=== PATIENT | female | born 1985 | race Caucasian/White ===

== ENCOUNTER 2017-09-21 00:50 | Emergency (ER) | payer BC, SELFPAY ==
[2017-09-21 00:52] VITALS: BP 144/87; PULSE 101; RESP 17; TEMP 36.5; O2SAT 99; BMI 19.5
--- NOTE | 2017-09-21 01:07 | ED.VISSUMM ---
- ER Visit Summary Date of Service: 09/21/17 Chief Complaint: [] Vaginal bleeding and History of Present Illness: The patient is a 31 F [] patient stated she had passed 2 clots today. There were an inch thick. She is 13 weeks . Other bleeding except for very mild spotting yesterday. No vaginal discharge or pain. She has had 2 spontaneous abortions in the past and one delivery. She had a normal ultrasound 4 days ago. Prior to this ultrasound 4 days ago she had a clot that they were watching that seemed to have resolved. She is O+ blood type. Physical Examination: [] Vital signs reviewed General: Well-nourished well-developed Head: Normocephalic atraumatic Eyes: Pupils equal round and reactive to light extraocular movements intact ENT: TMs clear no hemotympanum no trauma Neck: Nontender full range of motion Cardiovascular: Regular rate rhythm no murmurs normal S1-S2 Respiratory: No distress clear to auscultation bilaterally chest nontender Abdomen: Soft nontender nondistended normal bowel sounds no masses Pelvic exam shows no vaginal discharge or blood in the vault. No active bleeding. Normal cervix Back: Nontender no CVA tenderness Extremities: Nontender active range of motion ?4 extremities no trauma Skin: Normal color no trauma Neuro alert oriented cranial nerves II through XII intact normal strength sensation reflexes Test Results: [] Emergency Department Course and Treatment: [] Ultrasound shows single live intrauterine at 13 weeks 2 days. There is an echogenic substance near the office which has been identified previously corresponding to a known hematoma region. It measures 16 mm in its greatest dimension. Heart rate is 141. There is a low-lying placenta that the patient knew about. She is going to have a in this and her [employer] is monitoring. CBC is normal. Quant is 113,000. Patient remained stable here. I feel she can be discharged. She will follow-up with her OB. Treatment Plan: [] Disposition: [] Impression: [] Intrauterine Intrauterine hematoma with vaginal bleeding - resolved This note was generated with [employer] software. It may contain incorrect words, spelling, and punctuation that were not noted in review of the chart prior to signing ED Disposition - Plan for ED Patient: Chief Complaint: Vag Bld, Preg Referrals: Joseph White MD [Primary Care Provider] -
[2017-09-21 01:29] LABS: Absolute Lymphocyte Count 2.42 X10^3/ul (0.83-4.51); Absolute Neutrophil Count 4.2 X10^3/uL (2.0-7.7); Basophil# 0.02 X10^3/uL; Basophil% 0.3 % (0-1); Eosinophil# 0.04 X10^3/uL; Eosinophils% 0.6 % (0-5); Hematocrit 39.9 % (37-47); Hemoglobin 13.6 g/dl (12.0-15.0); Lymphocyte # 2.42 X10^3/ul (4.0); Lymphocyte % 33.5 % (19-41); Mean Corp Hgb Conc 34.1 g/gl (32-36); Mean Corpuscular Hgb 29.8 pg (27.0-32.0); Mean Corpuscular Volume 87.5 fL (81-99); Mean Platelet Vol. 9.2 fl (6.2-12.0); Monocyte# 0.56 X10^3/uL; Monocyte% 7.8 % (0-10); Neutrophil # 4.17 X10^3/uL (2.7-7.7); Neutrophil % 57.7 % (47-70); Platelet Count 191 K/mm3 (150-450); RBC Distribution Width CV 12.4 % (11.6-14.6); RBC Distribution Width SD 39.7 fl (35.1-43.9); Red Blood Count 4.56 M/mm3 (4.2-5.4); White Blood Count 7.2 K/mm3 (4.4-11.0)
[2017-09-21 01:30] LABS: POSITIVE COUNT NO; POSITIVE DIFFERENTIAL NO; POSITIVE MORPHOLOGY NO
--- NOTE | 2017-09-21 02:10 | US_ITS ---
STUDY: FIRST TRIMESTER OBSTETRICAL ULTRASOUND REASON FOR EXAM: Female, 31 years old. Abnormal vaginal bleeding in a patient. Patient reportedly had a previous ultrasound done on September 18, 2017 showing an endocervical hematoma. LMP: June 19, 2017 TECHNIQUE: Transvaginal PRIOR ULTRASOUND: Prior comparison studies are not available for review at this time. FINDINGS: There is visualization of a single gestational sac in a normal intrauterine position. The mean sac diameter (MSD) measures 6.2 cm. The gestational sac shape is within normal limits. There is no demonstrated yolk sac. There is visualization of the placenta. The placenta appears to be posterior and there appears to be partial previa versus low-lying placenta.. There is visualization of a live fetus. The crown-rump length (CRL) measures 7.0 cm, indicating an estimated gestational age (EGA) of 13 weeks, 2 days. There is demonstrated cardiac activity with a heart rate of 141 bpm. The estimated gestation age (EGA) by LMP is 13 weeks, 3 days. The estimated date of delivery (MISHEL) by LMP is March 26, 2018. The estimated gestation age (EGA) by US is 13 weeks, 2 days. The estimated date of delivery (MISHEL) by US is March 27, 2018. The uterus measures 11.1 x 8.1 x 10.8 cm. There is no demonstrated uterine fibroid. The cervix is closed. There appears to be a echogenic substance near the internal os of the cervix corresponding to known hematoma. This measures approximately 16.3 x 9.9 x 3.7 mm. The ovaries are not visualized. There is no visualized right adnexal mass or complex lesion. There is no visualized left adnexal mass or complex lesion. There is no fluid in the cul de sac. US/Transvaginal w/Preg US IMPRESSION: 1. Single living intrauterine gestation with estimated gestational age by size of 13 weeks 2 days. 2. Persistent hypoechoic substance near the internal os of cervix apparently previously identified on OB ultrasound. This presumably represents a small amount of hemorrhage. 3. Possible low-lying placenta versus partial placenta previa. Electronically Signed: Mariia Borden MD at 3:13 EST , Service support ,
--- NOTE | 2017-09-21 03:27 | ED.DEP ---
ED Disposition - Plan for ED Patient: Disposition: Home or Assisted Living Chief Complaint: Vag Bld, Preg Instructions: ED Miscarriage Poss Referrals: Joseph White MD [Primary Care Provider] - Clifton Bland MD [STAFF PHYSICIAN] -
[2017-09-21 03:34] VITALS: BP 109/77; PULSE 87; RESP 16; O2SAT 99
== END 2017-09-21 03:35 | disposition home or self-care (01) ==
PROVIDERS: Emergency Provider Emergency Medicine; Family Provider Family Medicine; PCP Family Medicine
DX: O20.8 Other hemorrhage in early pregnancy (principal); O44.41 Low lying placenta NOS or without hemorrhage, first trimester; Z3A.13 13 weeks gestation of pregnancy
CPT/HCPCS: 76817; 84702; 85025; 99283; A4216

== ENCOUNTER → 2017-12-31 08:57 | Outpatient (CLI) | payer BC, SELFPAY ==
[2017-12-31 10:37] LABS: Hematocrit 37.8 % (37-47); Hemoglobin 12.5 g/dl (12.0-15.0); Mean Corp Hgb Conc 33.1 g/gl (32-36); Mean Corpuscular Hgb 29.8 pg (27.0-32.0); Mean Platelet Vol. 9.4 fl (6.2-12.0); Platelet Count 177 K/mm3 (150-450); RBC Distribution Width CV 12.7 % (11.6-14.6); RBC Distribution Width SD 41.5 fl (35.1-43.9)
[2017-12-31 10:44] LABS: Scan Indicated on CBC? Y/N NO
[2017-12-31 10:48] LABS: Glucose Challenge Gest 1H 50g 130 mg/dL (70-140)
== END ==
PROVIDERS: Visit Provider Obstetrics & Gynecology
DX: Z34.82 Encounter for supervision of other normal pregnancy, second trimester (principal)
CPT/HCPCS: 36415; 82950; 85027

== ENCOUNTER 2018-02-23 20:30 | Outpatient (CLI) | payer BC, SELFPAY ==
[2018-02-23 21:05] LABS: Mucous, Urine 0 SEEN /hpf (<or=2+); Red Blood Cells-Urine 0 SEEN /hpf (0-5); White Blood Cells 0 SEEN /hpf (0-5)
[2018-02-23 21:06] LABS: Color, Urine Yellow (Yellow); Glucose, Dipstick Normal (Normal); Ketone-Dipstick 15 mg/dl (Negative); Leukocyte Esterase-Dipstick 25 /ul (Negative); Nitrite-Dipstick Negative (Negative); Occult Blood-Urine Negative /ul (Negative); Protein-Dipstick Negative (Negative); Urine Bilirubin Dipstick Negative (Negative); Urine Clarity Clear (Clear); Urine Urobilinogen Normal (Normal); Urine pH 6.5 (5.0 - 8.0)
[2018-02-23 21:10] VITALS: BMI 24.6
[2018-02-23 21:17] LABS: Bacteria RARE /hpf (None Seen); Squamous Epithelial Cells - UA 0-5 SEEN /hpf (5-10)
[2018-02-23 22:10] VITALS: RESP 18
--- NOTE | 2018-02-24 08:09 | OB.TRI.HP_ITS ---
History of Present Illness Reason For Visit: R/O LABOR Date of Service: 02/23/18 Final MISHEL: 03/26/18 Final MISHEL Source: US <20 weeks Gestational age: 35 Weeks and 4 Days History of Present Illness: 35+ week intrauterine presents with occasional contraction every 5-7 minutes. Palpate mild. Allergies iodine Allergy (Verified 02/23/18 21:08) Rash Physical Exam Vitals: Vital Signs Resp 18 02/23/18 22:10 NST - FHR Rate Baby A NST Reactive:: Yes FHR Category:: Category I Impression/Plan 35+ week intrauterine with transient contractions. Decreased in intensity and frequency after monitoring. Cervix nonthreatening. Reactive nonstress test. Urinalysis negative. Will release to home with routine follow- up.
== END 2018-02-23 22:10 | disposition home or self-care (01) ==
LOC: WPOUT 20:40 → WP 20:40
PROVIDERS: Family Provider Family Medicine; PCP Family Medicine; Visit Provider Obstetrics & Gynecology
DX: O60.03 Preterm labor without delivery, third trimester (principal); Z3A.35 35 weeks gestation of pregnancy
CPT/HCPCS: 59025; 59050; 81001; 99218; G0378

== ENCOUNTER → 2018-02-26 16:22 | Outpatient (CLI) | payer BC, SELFPAY ==
[2018-02-26 18:24] LABS: Group B Strep DNA By PCR Negative (Negative); Internal Control PASS; Probe Check PASS; Specimen Processing Control PASS
== END ==
PROVIDERS: Visit Provider Obstetrics & Gynecology
DX: Z36.85 Encounter for antenatal screening for Streptococcus B (principal)
CPT/HCPCS: 87081; 87653

== ENCOUNTER 2018-03-09 05:25 | Inpatient (IN) | payer BC, SELFPAY ==
[2018-03-09] VITALS (17 sets, daily range): BP systolic 102–119; BP diastolic 53–81; PULSE 91–111; RESP 14–20; TEMP 36.1–36.4; O2SAT 98–100; BMI 24.9
[2018-03-09 05:13] LABS: ROM Internal Control Test YES-OK TO RESULT pt. (Internal QC); ROM Patient Test POSITIVE (Negative)
[2018-03-09] MEDS: Lactated Ringers 1,000 ML 999 ML IV (05:55)
[2018-03-09 06:28] LABS: Basophil# 0.02 X10^3/uL; Basophil% 0.2 % (0-1); Eosinophil# 0.05 X10^3/uL; Eosinophils% 0.5 % (0-5); Hematocrit 39.1 % (37-47); Lymphocyte % 21.5 % (19-41); Mean Corp Hgb Conc 33.2 g/gl (32-36); Mean Corpuscular Hgb 29.3 pg (27.0-32.0); Mean Corpuscular Volume 88.1 fL (81-99); Mean Platelet Vol. 9.3 fl (6.2-12.0); Monocyte# 0.99 X10^3/uL; Monocyte% 9.7 % (0-10); Neutrophil # 6.97 X10^3/uL (2.7-7.7); Neutrophil % 67.9 % (47-70); Platelet Count 192 K/mm3 (150-450); RBC Distribution Width CV 12.8 % (11.6-14.6); RBC Distribution Width SD 41.2 fl (35.1-43.9); Red Blood Count 4.44 M/mm3 (4.2-5.4); White Blood Count 10.3 K/mm3 (4.4-11.0)
[2018-03-09 06:35] LABS: POSITIVE COUNT NO; POSITIVE DIFFERENTIAL NO; POSITIVE MORPHOLOGY NO
[2018-03-09] MEDS: Sodium Citrate/Citric Acid 30 ML UDC PO (09:10)
[2018-03-09] MEDS: Lactated Ringers 1,000 ML 100 ML IV ×3 (09:15→21:34)
[2018-03-09] MEDS: Oxytocin 30 units/NS 500 ml 30 UNITS/500 ML IV.SOLN 167 UNITS IV (09:32)
--- NOTE | 2018-03-09 10:23 | PCM.OP.BLANK ---
Operative Report Date of Procedure: 03/09/18 Surgeon: Clifton Bland MD, FACOG Manager Of Sales: JASMINE Landon Anesthesia: Martha Vargas MD Anesthesia: Spinal with Duramorph Pre-op Diagnosis: - -Prior Section Post-Op Diagnosis: - -Prior Section Procedure: Repeat Low Transverse Cervical Caesarean Section Findings: Viable male with Apgars of 9/9 in occiput anterior presentation with clear amniotic fluid and normal three-vessel placenta. Indication: This is a 32-year-old who presents for her second at 37 weeks 5 days weeks gestation with spontaneous rupture of memebranes at home. care has been eventful for a prior demise of her infant from SIDs at 9 weeks of age. The patient has been counseled regarding the risk and indications of this procedure including the possibility of bleeding infection and injury to surrounding structures such as bowel bladder. All questions were answered. Procedure: Patient was taken to the operating room where after spinal anesthesia was placed, the patient was prepped and draped in usual sterile fashion and a Hernandez catheter was placed. The abdomen was entered through the patient's prior Pfannenstiel incision, keloid scar was removed, and peritoneum was entered bluntly. After developing a bladder flap on the lower uterine segment a low transverse incision was made on the uterus and head was easily delivered onto the operative field the nose mouth and oropharynx were bulb suctioned. Subsequently a viable male was born with Apgars of 9/9. The was noted to cry move all extremities vigorously on the operative field. The umbilical cord was doubly clamped and ligated and handed to the nursery personnel who were present for the delivery. Placenta was delivered and noted to be 3 vessels and normal. Uterus was exteriorized and remaining placental tissue was removed. The uterus was then closed in 2 layers first with running locked 0 Vicryl suture followed by a second imbricating layer with 0 Vicryl suture. 0 Vicryl suture was then used in a horizontal mattress interrupted fashion to affect final hemostasis of the uterine incision line. Normal fallopian tubes and ovaries were visualized and the uterus was returned to the pelvis. Hemostasis was noted and rectus abdominis muscles were reapproximated in the midline with interrupted Number 0 Vicryl suture in a horizontal mattress fashion. Fascia was closed with running Number 1 PDS Strata fix suture. Subcutaneous tissue was irrigated with copious amouts of saline solution and then closed with running 3-0 Vicryl suture. Skin was closed with 4-0 monocryl suture in a running subcuticular fashion. Steri strips, telfa, and tape were placed across the incision. The patient tolerated the procedure well and was taken to the recovery room in satisfactory condition. Sponge, needle, and instrument counts were all reportedly correct. EBL was <500 cc. Ancef 2 gms IV was given prior to the procedure. Spicemen to Pathology: None Complications: None
--- NOTE | 2018-03-09 10:36 | DCINST_ITS ---
Discharge Diet: No Restrictions Discharge Activity: May not drive while taking narcotic pain medications., May Shower, May Take a Tub Bath May resume sexual activity in: 4-6 weeks Lifting Restrictions: 20 pounds Additional Activity Instructions:: Nothing in the vagina for 4-6 weeks. You may return to work/school in 6 weeks. Call your doctor if your incision/area has: Continuous Slow Oozing, Sudden Increased Bleeding, Increased Pain/ Swelling, Increased Redness, Foul Smelling Discharge Call your doctor if you observe: Fever of 101 or Higher, Inability to urinate, Inability to have a bowel movement, Using more than one pad per hour Additional Instructions: If you experience any of the following, contact your healthcare provider. * Bleeding that soaks a pad every hour for 2 hours * Unrelieved incision or abdominal pain * Swelling, redness, discharge or bleeding from your incision or episiotomy site * Your incision begins to separate * Problems urinating (including inability to urinate or burning while urinating) . * Visual changes * Severe headache * Flu-like symptoms * Pain or redness in one of both of your breasts * Pain, warmth, tenderness or swelling in your legs, especially the calf area * Frequent nausea and vomiting * Symptoms of depression or anxiety If you experience any of the following, call 911 or go to the nearest Emergency Room. * Chest pain * Problems breathing * Seizure activity * Partial or complete paralysis of a body part, slurred speech, weakness or drooping of the face, or a sudden inability to walk or hold your balance Allergies/Adverse Reactions: Allergies iodine Allergy (Verified 03/09/18 04:49) Rash Medications to take at Discharge Pnv with Ca,No.72/Iron/FA [ Plus Tablet] 1 tab PO DAILY 06/14/15 Docusate Sodium [Colace] 100 mg PO BID PRN PRN #60 cap 03/09/18 Oxycodone [Oxyir] 5 mg PO Q6H PRN PRN 7 Days #20 tab 03/09/18 The following prescriptions were given: Oxycodone [Oxyir] 5 mg PO Q6H PRN PRN 7 Days #20 tab PRN Reason: Mod-Severe Pain (-06/10) Docusate Sodium [Colace] 100 mg PO BID PRN PRN #60 cap PRN Reason: Constipation Follow-Up: Call to make an appointment with your doctor for an incision check in 1-2 weeks. You will also need a 6 week post- follow up appointment. Test results from this visit will be discussed in further detail at your follow- up appointment, if applicable. Please Follow Up With: Clifton Bland MD - [phone] When: Call to make an appointment for an incision check in 2 weeks. Primary Care Physician: Joseph White MD [Primary Care Provider] -
--- NOTE | 2018-03-09 13:01 | NURSING ---
pt had 200 cc emesis. BP 126/78. Room temp decreased, ice given to place on pts neck. encouraged ice chips vs drinking fluids. Pt refuses any further nausea med at this time.
[2018-03-09] MEDS: proMETHazine 25 MG/ML Syringe 12.5 MG IV (13:44)
[2018-03-09] MEDS: Ketorolac 30 MG/ML Syringe IV ×2 (15:42→21:33)
[2018-03-09] MEDS: Cefazolin 1 GM/50 ML BAG IV (17:18)
[2018-03-10] VITALS (8 sets, daily range): BP systolic 95–126; BP diastolic 58–85; PULSE 88–107; RESP 16–18; TEMP 36.4–36.7; O2SAT 97–100
[2018-03-10] MEDS: Cefazolin 1 GM/50 ML BAG IV (00:55)
[2018-03-10] MEDS: Ketorolac 30 MG/ML Syringe IV ×3 (03:39→14:59)
[2018-03-10 06:14] LABS: Hematocrit 31.5 % (37-47); Hemoglobin 10.4 g/dl (12.0-15.0); Mean Corpuscular Hgb 29.9 pg (27.0-32.0); Mean Corpuscular Volume 90.5 fL (81-99); Platelet Count 164 K/mm3 (150-450); RBC Distribution Width CV 12.8 % (11.6-14.6); RBC Distribution Width SD 41.4 fl (35.1-43.9); Red Blood Count 3.48 M/mm3 (4.2-5.4); White Blood Count 11.4 K/mm3 (4.4-11.0)
[2018-03-10 06:24] LABS: Scan Indicated on CBC? Y/N NO
--- NOTE | 2018-03-10 07:49 | PCM.PN.OB ---
Subjective: Patient without complaints. Tolerating diet well. Positive flatus. - Physical Exam Vital Signs AF, VSS Temp Pulse Resp BP Pulse Ox 98.1 F 98 18 96/59 L 97 03/10/18 03:45 03/10/18 05:55 03/10/18 05:55 03/10/18 03:45 03/10/18 05:55 Oxygen Delivery Method Room Air Weight: 140 lb 10.479 oz Body Mass Index (BMI) 24.9 Intake and Output for Last 24 Hours 03/08/18 03/09/18 03/10/18 23:59 23:59 23:59 Intake Total 5094 / 5094 1514 / 1514 Output Total 2400 / 2400 1400 / 1400 Balance 2694 / 2694 114 / 114 Laboratory Tests Past 24 Hrs 03/10/18 05:00 WBC 11.4 H RBC 3.48 L Hgb 10.4 L Hct 31.5 L MCV 90.5 MCH 29.9 MCHC 33.0 RDW 12.8 RDW Differential 41.4 Plt Count 164 MPV 9.0 Wound is clean, dry, intact. Good urine output. Hemoglobin okay. Medical Necessity - Tobacco Use Smoking Status: Never smoker Assessment/Plan All Active Problems distress affecting delivery (Acute) Doing well. Continuing present care.
[2018-03-10] MEDS: 0.9% Saline Lock 10 ML Syringe IV ×2 (08:26→15:00)
--- NOTE | 2018-03-10 18:16 | NURSING ---
Patient is currently pain free. Since IV came out, I educated and discussed different pain medication options available to her. Also discussed using a binder when she is up and walking and using a kpad if needed. Patient denies need for pain intervention at this time. will continue to monitor
[2018-03-10] MEDS: Ibuprofen 600 MG Tablet PO (21:14)
[2018-03-11 01:15] VITALS: BP 113/72; PULSE 91; RESP 18; TEMP 36.6; O2SAT 97
[2018-03-11] MEDS: Ibuprofen 600 MG Tablet PO (03:17)
[2018-03-11 08:30] VITALS: BP 100/70; PULSE 95; RESP 20; TEMP 36.3; O2SAT 97
[2018-03-11] MEDS: Senna/Docusate Sodium 1 Tablet PO (08:30)
--- NOTE | 2018-03-11 09:44 | PCM.PN.OB ---
Subjective: Postoperative day #2 repeat . Patient without complaints. Tolerating diet well. Ready to go home. - Physical Exam Vital Signs Temp Pulse Resp BP Pulse Ox 97.3 F L 95 20 H 100/70 97 03/11/18 08:30 03/11/18 08:30 03/11/18 08:30 03/11/18 08:30 03/11/18 08:30 Oxygen Delivery Method Room Air Weight: 140 lb 10.479 oz Body Mass Index (BMI) 24.9 Intake and Output for Last 24 Hours 03/09/18 03/10/18 03/11/18 23:59 23:59 23:59 Intake Total 5094 / 5094 2053 / 2053 Output Total 2400 / 2400 3000 / 3000 Balance 2694 / 2694 -947 / -947 Wound is clean, dry, intact. Good urine output. Medical Necessity - Tobacco Use Smoking Status: Never smoker Assessment/Plan All Active Problems distress affecting delivery (Acute) Postoperative day #2 repeat . Doing well. Will release to home with routine instructions.
== END 2018-03-11 12:10 | disposition home or self-care (01) | DRG 766 ==
LOC: WPOUT 05:25
PROVIDERS: Obstetrics & Gynecology; Admitting Provider Obstetrics & Gynecology; Family Provider Family Medicine; PCP Family Medicine; Visit Provider Obstetrics & Gynecology
DX: O34.211 Maternal care for low transverse scar from previous cesarean delivery (principal); Z37.0 Single live birth; Z3A.37 37 weeks gestation of pregnancy; L91.0 Hypertrophic scar; O77.9 Labor and delivery complicated by fetal stress, unspecified
CPT/HCPCS: 59025; 59050; 84112; 85025; 85027; 86850; 86900; 99218; J7120; A4216; G0378; J2405

== ENCOUNTER → 2019-03-10 | Outpatient (CLI) | payer BC, SELFPAY ==
[2018-03-09 04:47] VITALS: BMI 24.9
[2019-03-10 20:14] LABS: Chlamydia Trachomatis by PCR Negative (Negative); Neisserai gonorrhoeae by PCR Negative (Negative); Probe Check PASS; Sample Adequacy Control PASS; Specimen Processing Control PASS
[2019-03-19 11:41] LABS: HPV APTIMA, High Risk Negative (Negative)
[2019-03-19 12:42] LABS: HPV Reflexed? YES, CHARGE PATIENT
== END | disposition home or self-care (01) ==
LOC: LABSPEC 16:13
PROVIDERS: Family Provider Family Medicine; PCP Family Medicine; Referring Provider Obstetrics & Gynecology; Visit Provider Obstetrics & Gynecology
DX: Z12.4 Encounter for screening for malignant neoplasm of cervix (principal); Z11.3 Encounter for screening for infections with a predominantly sexual mode of transmission
CPT/HCPCS: 87491; 87591; 87624; 88175; G0145

== ENCOUNTER → 2019-04-21 | Outpatient (CLI) | payer BC, SELFPAY ==
[2018-03-09 04:47] VITALS: BMI 24.9
[2019-04-21 17:17] LABS: Color, Urine Straw (Yellow); Glucose, Dipstick Normal (Normal); Ketone-Dipstick Negative (Negative); Leukocyte Esterase-Dipstick 100 /ul (Negative); Nitrite-Dipstick Negative (Negative); Occult Blood-Urine Negative /ul (Negative); Protein-Dipstick Negative (Negative); Specific Gravity, Urine 1.005 (1.002-1.030); Urine Bilirubin Dipstick Negative (Negative); Urine Clarity Clear (Clear); Urine Urobilinogen Normal (Normal)
[2019-04-21 17:21] LABS: Absolute Lymphocyte Count 1.83 X10^3/uL (0.83-4.51); Absolute Neutrophil Count 7.2 X10^3/uL (2.0-7.7); Basophil# 0.03 X10^3/uL; Basophil% 0.3 % (0-1); Eosinophil# 0.03 X10^3/uL; Eosinophils% 0.3 % (0-5); Hematocrit 41.3 % (37-47); Hemoglobin 13.6 g/dL (12.0-15.0); Lymphocyte # 1.83 X10^3/ul (4.0); Lymphocyte % 19.1 % (19-41); Mean Corp Hgb Conc 32.9 g/dL (32-36); Mean Corpuscular Hgb 29.4 pg (27.0-32.0); Mean Corpuscular Volume 89.4 fL (81-99); Mean Platelet Vol. 9.4 fl (6.2-12.0); Monocyte# 0.52 X10^3/uL; Monocyte% 5.4 % (0-10); NRBC Flagged by Analyzer 0 % (0-5); Neutrophil # 7.16 X10^3/uL (2.7-7.7); Neutrophil % 74.7 % (47-70); Platelet Count 233 K/mm3 (150-450); RBC Distribution Width CV 12.3 % (11.6-14.6); RBC Distribution Width SD 39.8 fl (35.1-43.9); Red Blood Count 4.62 M/mm3 (4.2-5.4); White Blood Count 9.6 K/mm3 (4.4-11.0)
[2019-04-21 17:43] LABS: Thyroid Stim Hormone (TSH) 0.24 uIU/mL (0.358-3.74)
[2019-04-22 10:57] LABS: HIV - WCH Non-Reactive (Nonreactive); Hepatitis B Surface Antigen Non-Reactive (Nonreactive); Hepatitis C Antibody Non-Reactive (Nonreactive); Rubella IgG > 500.0 IU/mL
[2019-04-23 01:39] LABS: Prenatal RPR NONREACTIVE (NONREACTIVE)
[2019-04-28 10:36] LABS: PARVOVIRUS B19 IGG 6.9 index (0.0-0.8); PARVOVIRUS B19 IGM 0.4 index (0.0-0.8)
== END | disposition home or self-care (01) ==
LOC: WOBLAB 15:03
PROVIDERS: Visit Provider Obstetrics & Gynecology
DX: Z34.81 Encounter for supervision of other normal pregnancy, first trimester (principal)
CPT/HCPCS: 36415; 81002; 84443; 85025; 86703; 86747; 86762; 86803; 87340

== ENCOUNTER → 2019-06-08 17:25 | Outpatient (CLI) | payer BC, SELFPAY ==
[2018-03-09 04:47] VITALS: BMI 24.9
== END ==
PROVIDERS: Visit Provider Obstetrics & Gynecology
DX: R10.31 Right lower quadrant pain (principal)
CPT/HCPCS: 87086; 87088

== ENCOUNTER → 2019-08-05 09:51 | Outpatient (CLI) | payer BC, SELFPAY ==
[2018-03-09 04:47] VITALS: BMI 24.9
[2019-08-05 11:03] LABS: Hematocrit 38.8 % (37-47); Hemoglobin 12.9 g/dL (12.0-15.0); Mean Corp Hgb Conc 33.2 g/dL (32-36); Mean Corpuscular Hgb 30.4 pg (27.0-32.0); Mean Corpuscular Volume 91.3 fL (81-99); Mean Platelet Vol. 9.3 fl (6.2-12.0); Platelet Count 193 K/mm3 (150-450); RBC Distribution Width CV 12.4 % (11.6-14.6); Red Blood Count 4.25 M/mm3 (4.2-5.4); White Blood Count 9.3 K/mm3 (4.4-11.0)
[2019-08-05 11:13] LABS: Glucose Challenge Gest 1H 50g 108 mg/dL (70-140)
== END ==
PROVIDERS: Visit Provider Obstetrics & Gynecology
DX: Z34.83 Encounter for supervision of other normal pregnancy, third trimester (principal)
CPT/HCPCS: 36415; 82950; 85027

== ENCOUNTER 2019-10-02 04:30 | Outpatient (CLI) | payer BC, SELFPAY ==
[2019-10-02 05:15] VITALS: BMI 23.9
[2019-10-02] MEDS: Lactated Ringers 1,000 ML 999 ML IV (05:30)
[2019-10-02] MEDS: Betamethasone/Betamethasone 30 MG/5 ML Vial 12 MG IM (07:47)
--- NOTE | 2019-10-02 10:45 | OB.TRI.HP_ITS ---
- Problem List (1) 35 weeks gestation of Status: Acute History of Present Illness Date of Service: 10/02/19 Was patient seen by the physician?: Yes Reason For Visit: C/O Date of Service: 10/02/19 Final MISHEL: 10/31/19 Final MISHEL Source: US <20 weeks Gestational age: 35 Weeks and 6 Days Allergies iodine Allergy (Verified 10/02/19 05:57) Rash Review of Systems Constitutional: Denies: Chills, Fever, Weight Change HEENT: Denies: Head Aches, Sinus Congestion, Sinus Drainage Cardiovascular: Denies: Chest Pain, Palpitations Respiratory: Denies: Cough, Shortness of breath at rest, Sputum production Gastrointestinal: Reports: Abdominal Pain - Uterine contractions. Denies: Nausea, Vomiting Genitourinary: Denies: Dysuria Musculoskeletal: Denies: Joint Pain, Joint Tenderness Skin: Denies: Rash, Wounds Neurological: Denies: Numbness, Tingling, Focal weakness Psychiatric: Denies: Anxiety, Depression, Homicidal Ideations, Suicidal Ideations Hematologic/ Lymphatic: Denies: Easy Bruising, Easy Bleeding Physical Exam General: Alert, Oriented x3, No apparent distress HEENT: Atraumatic, Normocephalic. Negative for: Thyromegaly, Lymphadenopathy Cardiovascular: Regular rate, Regular Rhythm Lungs: Clear to auscultation Abdomen: Bowel Sounds Present, Gravid Neurological: Deep Tendon Reflexes 2+/4 and Symmetrical, Neuro grossly intact MEDICAL AND SCIENTIFIC ILLUSTRATOR: Normal external genitalia. Negative for: Vulvar lesions Estimated gestational size: Appropriate for gestational size Presentation: Cephalic Cervix Dilation (cm): 2 Station: -3 Effacement (%): 50 NST - FHR Rate Baby A Baseline: 140 Variability:: Moderate Accelerations:: 15 x 15 Decelerations:: None NST Reactive:: Yes FHR Category:: Category I Uterine Activity:: Q10-12 minutes Impression/Plan A: at 35.6 weeks gestation Uterine contractions on admission Q4 minutes. IV fluids received. Now Q10 minutes SVE 2/50/-3 medium/mid NST baseline 140, +accels, -decels, moderate variability, Category I P: Celestone received at 0800, second dose 10/03/19 at 0800 Discussed case with attending Dr. Bland Discharge home on bedrest. To increase fluids and monitor UC. If becoming more regular or stronger again to report back to [facility] or call CNM. Will follow up in office at routine visit Friday
== END 2019-10-02 10:15 | disposition home or self-care (01) ==
LOC: WPOUT 04:36 → OBT 04:37 → WP 08:04
PROVIDERS: Referring Provider Obstetrics & Gynecology; Visit Provider Obstetrics & Gynecology
DX: O62.9 Abnormality of forces of labor, unspecified (principal); Z3A.35 35 weeks gestation of pregnancy
CPT/HCPCS: 96360; 59025; 59050; 99218; J7120; G0378; J0702

== ENCOUNTER 2019-10-03 08:05 | Outpatient (CLI) | payer BC, SELFPAY ==
[2019-10-02 05:15] VITALS: BMI 23.9
[2019-10-03 08:17] VITALS: BMI 24.4
[2019-10-03] MEDS: Betamethasone/Betamethasone 30 MG/5 ML Vial 12 MG IM (08:28)
== END 2019-10-03 08:35 | disposition home or self-care (01) ==
LOC: WPOUT 08:11 → WP 08:11
PROVIDERS: Referring Provider Obstetrics & Gynecology; Visit Provider Obstetrics & Gynecology
DX: O62.9 Abnormality of forces of labor, unspecified (principal); Z3A.35 35 weeks gestation of pregnancy
CPT/HCPCS: 96372; 99218; G0378; J0702

== ENCOUNTER → 2019-10-04 | Outpatient (CLI) | payer BC, SELFPAY ==
[2019-10-03 08:17] VITALS: BMI 24.4
== END | disposition home or self-care (01) ==
PROVIDERS: Referring Provider Obstetrics & Gynecology; Visit Provider Obstetrics & Gynecology
DX: Z36.85 Encounter for antenatal screening for Streptococcus B (principal)
CPT/HCPCS: 87081

== ENCOUNTER 2019-10-05 07:05 | Inpatient (IN) | payer BC, SELFPAY ==
[2019-10-05] VITALS (22 sets, daily range): BP systolic 104–130; BP diastolic 59–87; PULSE 73–107; RESP 13–18; TEMP 36.2–37.1; O2SAT 97–100; BMI 24.0
[2019-10-05] MEDS: Lactated Ringers 1,000 ML 999 ML IV (07:45)
--- NOTE | 2019-10-05 08:05 | PCM.HP.OB ---
- Problem List (1) 36 weeks gestation of Status: Acute (2) Spontaneous rupture of amniotic membranes Status: Acute History Date of Admission: 09/02/16 Final MISHEL: 10/31/19 Final MISHEL Source: US <20 weeks Gestational age: 36 Weeks and 2 Days History of this : This is a 33 year-old, G [], P [], at weeks gestational age. Allergies iodine Allergy (Verified 10/02/19 05:57) Rash Home Medications: Home Medications Pnv,Calcium 72/Iron/Folic Acid [ Plus Tablet] 1 tab PO DAILY 06/14/15 Smoking Status: Never smoker Number of Fetus(es): 1 NST - FHR Rate Baby A Baseline: 140 Variability:: Moderate Accelerations:: 15 x 15 Decelerations:: Variable NST Reactive:: Yes FHR Category:: Category I Uterine Activity:: Q 5 minutes, lasting 2 minutes History Past Pregnancies: Past Pregnancies Delivery Date Name GA/ Weeks Outcome Route Wt Sex Labor Length Anesthesia Delivery Location Provider FOB Expected Delivery Method: Spontaneous Vaginal Number of Visits: 14 Review of Systems Constitutional: Denies: Chills, Fever, Weight Change HEENT: Reports: Nasal Congestion - Started on Z-pack yesterday. Denies: Head Aches, Sinus Congestion, Sinus Drainage Cardiovascular: Denies: Chest Pain, Palpitations Respiratory: Denies: Cough, Shortness of breath at rest, Sputum production Gastrointestinal: Denies: Abdominal Pain, Nausea, Vomiting Genitourinary: Denies: Dysuria Musculoskeletal: Denies: Joint Pain, Joint Tenderness Skin: Denies: Rash, Wounds Neurological: Denies: Numbness, Tingling, Focal weakness Psychiatric: Denies: Anxiety, Depression, Homicidal Ideations, Suicidal Ideations Hematologic/ Lymphatic: Denies: Easy Bruising, Easy Bleeding Physical Exam General: Alert, Oriented x3, No apparent distress HEENT: Atraumatic, Normocephalic. Negative for: Thyromegaly, Lymphadenopathy Cardiovascular: Regular rate, Regular Rhythm Lungs: Clear to auscultation Abdomen: Bowel Sounds Present, Gravid, - - Uterine contractions Neurological: Deep Tendon Reflexes 2+/4 and Symmetrical, Neuro grossly intact ABSORPTION OPERATOR: Normal external genitalia. Negative for: Vulvar lesions Estimated gestational size: Appropriate for gestational size Presentation: Cephalic Cervix Dilation (cm): 4 Station: -2 Effacement (%): 50 Assessment/Plan All Active Problems 35 weeks gestation of (Acute) 36 weeks gestation of (Acute) Spontaneous rupture of amniotic membranes (Acute) distress affecting delivery (Acute) A: This is a 33 year-old, G [5], P [1], at 36 weeks gestational age. Premature spontaneous rupture of membranes at 0620 at home, clear amniotic fluid Received two doses of Celestone on 10-02-19 and 10-03-19 for contractions Upper respiratory infection with Z-pack started yesterday SVE 4/50/-2 soft mid UC Q5 minutes with FHR baseline 140, +accels, one variable noted, moderate variability. Cateogry 1 tracing P: Called attending Dr. Bland for repeat third Ancef 2g to start per Dr. Bland's instruction Will prep for May stop Z-pack on admission Admit and expect repeat
--- NOTE | 2019-10-05 08:27 | OP.PCM_ITS ---
Delivery Classification: GEORGE Final MISHEL: 10/31/19 Final MISHEL Source: US <20 weeks Gestational age: 36 Weeks and 2 Days doctor who attended delivery (if requested by OB): Chago Lewis - 36 weeks gestation entry operator: Lul Esqueda Type of Anesthesia:: Spinal - With Duramorph Implants Used: None Date of Procedure: 10/05/19 Pre-Operative Diagnosis: Term Intrauterine with Premature Rupture of Membranes, Prior Section Post-Operative Diagnosis: Term Intrauterine with Premature Rupture of Membranes, Prior Section Description of Procedure: Surgeon: Clifton Bland MD, FACOG Anesthesia: Eben Rivas CRNA Anesthesia: Spinal with Duramorph Pre-op Diagnosis: - -Prior Section Post-Op Diagnosis: - -Prior Section Procedure: Repeat Low Transverse Cervical Caesarean Section Findings: Viable female with Apgars of 8/9 in occiput anterior presentation with clear amniotic fluid and normal three-vessel placenta. Cord was around the neck tight x1. Indication: This is a 33-year-old who presents for her third at 36+ weeks gestation. care has otherwise been uneventful except for presenting with gross rupture of membranes at 36+ weeks gestation. The patient has been counseled regarding the risk and indications of this procedure including the possibility of bleeding infection and injury to surrounding structures such as bowel bladder. All questions were answered. Procedure: Patient was taken to the operating room where after spinal anesthesia was placed, the patient was prepped and draped in usual sterile fashion and a Hernandez catheter was placed. The abdomen was entered through the patient's prior Pfannenstiel incision and peritoneum was entered bluntly. The patient's old scar was removed and discarded. After developing a bladder flap on the lower uterine segment a low transverse incision was made on the uterus and head was easily delivered onto the operative field the nose mouth and oropharynx were bulb suctioned. Subsequently a viable female was born with Apgars of 8/9. The infant was noted to cry move all extremities vigorously on the operative field. The umbilical cord was doubly clamped and ligated and infant handed to the nursery personnel who were present for the delivery. Placenta was delivered and noted to be 3 vessels and normal. Uterus was exteriorized and remaining placental tissue was removed. The uterus was then closed in 2 layers first with running locked 0 Vicryl suture followed by a second imbricating layer with 0 Vicryl suture. 0 Vicryl suture was then used in a horizontal mattress interrupted fashion to affect final hemostasis of the uterine incision line. Normal fallopian tubes and ovaries were visualized and the uterus was returned to the pelvis. Hemostasis was noted and rectus abdominis muscles were reapproximated in the midline with interrupted Number 0 Vicryl suture in a horizontal mattress fashion. Fascia was closed with running Number 1 PDS Strata fix suture. Subcutaneous tissue was irrigated with copious amounts of saline solution and then closed with running 3-0 Vicryl suture. Skin was closed with 4-0 monocryl suture in a running subcuticular fashion. Steri strip and Mepilex were placed across the incision. The patient tolerated the procedure well and was taken to the recovery room in satisfactory condition. Sponge, needle, and instrument counts were all reportedly correct. EBL was less than 500 cc. Ancef 2 gms IV was given prior to the procedure. Spicemen to Pathology: None Complications: None Amniotic Membrane Rupture Type: Spontaneous Amniotic Fluid Description: Clear Placenta Disposition: [facility] Drain: Hernandez to straight drain Fluids Replaced: Crystalloid Cord Entanglement: Around neck x 1, tight Cord Vessel Description: 3 Vessels Esitmated Blood Loss (ml): 500 cc Infant Gender: Female (1 minute): 8 (5 minute): 9 Antibiotic Given: Ancef 2 grams IV x1 Pt instructed on risks of surgery: Bleeding, Infection, Injury to surrounding structure(s) including bowel and bladder - Admit VTE Documentation VTE Present on Admission: Yes VTE Mechan Device Prophylaxis: SCD's
--- NOTE | 2019-10-05 08:30 | DCINST_ITS ---
Discharge Diet: No Restrictions Discharge Activity: May not drive while taking narcotic pain medications., May Shower, May Take a Tub Bath May resume sexual activity in: 4-6 weeks Lifting Restrictions: 20 pounds Additional Activity Instructions:: Nothing in the vagina for 4-6 weeks. You may return to work/school in 6 weeks. Call your doctor if your incision/area has: Continuous Slow Oozing, Sudden Increased Bleeding, Increased Pain/ Swelling, Increased Redness, Foul Smelling Discharge Call your doctor if you observe: Fever of 101 or Higher, Inability to urinate, Inability to have a bowel movement, Using more than one pad per hour Additional Instructions: If you experience any of the following, contact your healthcare provider. * Bleeding that soaks a pad every hour for 2 hours * Unrelieved incision or abdominal pain * Swelling, redness, discharge or bleeding from your incision or episiotomy site * Your incision begins to separate * Problems urinating (including inability to urinate or burning while urinating). * Visual changes * Severe headache * Flu-like symptoms * Pain or redness in one of both of your breasts * Pain, warmth, tenderness or swelling in your legs, especially the calf area * Frequent nausea and vomiting * Symptoms of depression or anxiety If you experience any of the following, call 911 or go to the nearest Emergency Room. * Chest pain * Problems breathing * Seizure activity * Partial or complete paralysis of a body part, slurred speech, weakness or drooping of the face, or a sudden inability to walk or hold your balance Allergies/Adverse Reactions: Allergies iodine Allergy (Verified 10/05/19 08:18) Rash Medications to take at Discharge Pnv,Calcium 72/Iron/Folic Acid [ Plus Tablet] 1 tab PO DAILY 06/14/15 Azithromycin 10/05/19 Docusate Sodium [Colace] 100 mg PO BID PRN PRN #60 cap 10/05/19 Oxycodone [Oxyir] 5 mg PO Q6H PRN PRN 7 Days #20 tablet 10/05/19 The following prescriptions were given: Docusate Sodium [Colace] 100 mg PO BID PRN PRN #60 cap PRN Reason: Constipation Transmission Status: Pending to [id number] Oxycodone [Oxyir] 5 mg PO Q6H PRN PRN 7 Days #20 tablet PRN Reason: Pain Score 6-10/10 Transmission Status: Received by [id number] Follow-Up: Call to make an appointment with your doctor for an incision check in 1-2 weeks. You will also need a 6 week post- follow up appointment. Test results from this visit will be discussed in further detail at your follow- up appointment, if applicable. Please Follow Up With: Clifton Bland MD - [phone] When: Call to make an appointment for an incision check in 2 weeks.
[2019-10-05] MEDS: Sodium Citrate/Citric Acid 30 ML UDC PO (08:32)
[2019-10-05 08:43] LABS: Absolute Lymphocyte Count 1.54 X10^3/uL (0.83-4.51); Absolute Neutrophil Count 7.7 X10^3/uL (2.0-7.7); Basophil# 0.02 X10^3/uL; Basophil% 0.2 % (0-1); Eosinophil# 0.01 X10^3/uL; Eosinophils% 0.1 % (0-5); Hematocrit 39.4 % (37-47); Hemoglobin 12.8 g/dL (12.0-15.0); Lymphocyte # 1.54 X10^3/ul (4.0); Lymphocyte % 14.9 % (19-41); Mean Corp Hgb Conc 32.5 g/dL (32-36); Mean Corpuscular Hgb 29.1 pg (27.0-32.0); Mean Corpuscular Volume 89.5 fL (81-99); Mean Platelet Vol. 9.5 fl (6.2-12.0); Monocyte# 0.95 X10^3/uL; Monocyte% 9.2 % (0-10); NRBC Flagged by Analyzer 0 % (0-5); Neutrophil # 7.67 X10^3/uL (2.7-7.7); Neutrophil % 74.2 % (47-70); Platelet Count 225 K/mm3 (150-450); RBC Distribution Width CV 13.1 % (11.6-14.6); White Blood Count 10.3 K/mm3 (4.4-11.0)
[2019-10-05] MEDS: Cefazolin 2 GM in 0.9% Normal Saline 100 ML IV (08:47)
[2019-10-05] MEDS: Oxytocin 30 units/NS 500 ml 30 UNITS/500 ML IV.SOLN 167 UNITS IV (10:00)
[2019-10-05] MEDS: Lactated Ringers 1,000 ML 100 ML IV (13:07)
[2019-10-05] MEDS: Ketorolac 30 MG/ML Syringe IV ×2 (15:55→22:13)
[2019-10-05] MEDS: 0.9% Saline Lock 10 ML Syringe IV (22:13)
[2019-10-06 02:00] VITALS: PULSE 90; RESP 16; O2SAT 99
[2019-10-06 03:45] VITALS: BP 102/65; PULSE 99; RESP 16; TEMP 36.8; O2SAT 99
[2019-10-06] MEDS: 0.9% Saline Lock 10 ML Syringe IV ×2 (03:49→09:32)
[2019-10-06] MEDS: Ketorolac 30 MG/ML Syringe IV ×2 (03:50→09:32)
[2019-10-06 05:09] LABS: Hematocrit 31.4 % (37-47); Hemoglobin 10.4 g/dL (12.0-15.0); Mean Corp Hgb Conc 33.1 g/dL (32-36); Mean Corpuscular Hgb 29.5 pg (27.0-32.0); Mean Corpuscular Volume 89.2 fL (81-99); Mean Platelet Vol. 9.2 fl (6.2-12.0); Platelet Count 168 K/mm3 (150-450); RBC Distribution Width SD 42.4 fl (35.1-43.9); Red Blood Count 3.52 M/mm3 (4.2-5.4); White Blood Count 13.5 K/mm3 (4.4-11.0)
[2019-10-06 06:25] VITALS: PULSE 89; RESP 16; O2SAT 98
--- NOTE | 2019-10-06 07:40 | PN.OBGYN_ITS ---
Patient Problems: Active and Suspected Problems 36 weeks gestation of (Acute) Spontaneous rupture of amniotic membranes (Acute) Subjective: Feeling well, just very tired. Hasn't gotten much sleep. Daughter is in special care with borderline low blood sugars. Pain is well controlled with IV medication, but wants to switch to just Tylenol today. , but wants pump today to start pumping for daughter since they're not letting her latch now with the low blood sugars. Feeling gas bubbles and no issues with urination. Objective: VSS. Fundus firm, midline, u/1. Hg on admission 12.8, post op 10.4. Incision CDI. Lochia rubra scant. - Physical Exam Vitals/I&O's: Vital Signs Temp Pulse Resp BP Pulse Ox 98.3 F 89 16 102/65 98 10/06/19 03:45 10/06/19 06:25 10/06/19 06:25 10/06/19 03:45 10/06/19 06:25 Oxygen Delivery Method Room Air Weight: 61.689 kg Body Mass Index (BMI) 24.0 Intake and Output for Last 24 Hours 10/04/19 10/05/19 10/06/19 23:59 23:59 23:59 Intake Total 3544.09 / 3544.09 Output Total 160 / 160 800 / 800 Balance 3384.09 / 3384.09 -800 / -800 General: Alert, Oriented x3, Cooperative HEENT: Atraumatic, PERRLA, EOMI, Normocephalic Neck: Supple, No JVD, Negative Carotid Bruits Lungs: Clear to auscultation, Normal air movement Cardiovascular: Regular rate, No murmurs Abdomen: Bowel Sounds Present, Soft, Non Tender, Tender, - - not passing flatus, but feels bowels moving, fundus firm midline u/1 Extremities: No edema, Capillary Refill Less than 3 Seconds Skin: No rashes, No breakdown, Incision - csection dressing CDI Musculoskeletal: No Tenderness to Palpation of Joints or Extremities Neurological: Cranial nerves II-XII grossly intact Psych/Mental Status: Normal Affect, Appropriate Laboratory Results 10/05/19 07:45: WBC 10.3, RBC 4.40, Hgb 12.8, Hct 39.4, MCV 89.5, MCH 29.1, MCHC 32.5, RDW Std Deviation 43.0, RDW Coeff of Edyta 13.1, Plt Count 225, MPV 9.5, Immature Gran % (Auto) 1.400 H, Neut % (Auto) 74.2 H, Lymph % (Auto) 14.9 L, [place] % (Auto) 9.2, Eos % (Auto) 0.1, Baso % (Auto) 0.2, Absolute Neuts (auto) 7. 7, Absolute Lymphs (auto) 1.54, Nucleated RBC % 0 10/05/19 07:45: Blood Type O POSITIVE, Antibody Screen NEGATIVE 10/06/19 05:00: WBC 13.5 H, RBC 3.52 L, Hgb 10.4 L, Hct 31.4 L, MCV 89.2, MCH 29.5, MCHC 33.1, RDW Std Deviation 42.4, RDW Coeff of Edyta 13.0, Plt Count 168, MPV 9.2 Current Medications Acetaminophen (Tylenol) 1,000 mg PO Q8H PRN PRN Reason: Pain Score 1-3/10 Bisacodyl (Dulcolax) 10 mg RECTAL UD PRN PRN Reason: If no BM Hydrocortisone (Hytone) 1 applic TOPICAL TID PRN PRN; Protocol PRN Reason: Discomfort Naloxone HCl 4 mg/ Dextrose 504 mls @ 0 mls/hr IV .Q0M PRN; Protocol PRN Reason: To maintain Resp. rate >10 Ibuprofen (Motrin) 600 mg PO Q6H PRN PRN PRN Reason: Pain Score 1-3/10 Ketorolac Tromethamine (Toradol (Bkc)) 30 mg IV Q6H TIANNA Stop: 10/07/19 09:31 Last Admin: 10/06/19 03:50 Dose: 30 mg Documented by: Methylergonovine Maleate (Methergine) 0.2 mg IM X1 PRN PRN Reason: Uterine Atony Naloxone HCl (Narcan) 0.02 mg IV Q1M PRN PRN Reason: RR <10 and pt unresponsive Ondansetron HCl (Zofran) 4 mg IV Q4H PRN PRN PRN Reason: Nausea Oxycodone HCl (Oxyir) 5 - 10 mg PO Q4H PRN PRN PRN Reason: Pain Score 4-10/10 Prochlorperazine Edisylate (Compazine Iv) 10 mg IV Q6H PRN PRN PRN Reason: NAUSEA Senna/Docusate Sodium (Senokot-S, Sylvia-Colace) 0 tablet PO DAILY PRN PRN Reason: Constipation Simethicone (Mylicon) 80 mg PO PCHS PRN PRN Reason: Indigestion/stomach pain Sodium Chloride () 5 - 15 ml IV UD PRN PRN Reason: SALINE FLUSH Last Admin: 10/06/19 03:49 Dose: 10 ml Documented by: Zolpidem Tartrate (Ambien (Generic)) 5 mg ORAL QHS PRN PRN PRN Reason: Insomnia Medical Necessity - Tobacco Use Smoking Status: Never smoker Assessment/Plan All Active Problems 35 weeks gestation of (Acute) 36 weeks gestation of (Acute) Spontaneous rupture of amniotic membranes (Acute) distress affecting delivery (Acute) A: POD #1 s/p repeat Normal involution and course Pain well tolerated Incision CDI planned Daughter is in special care nursery for borderline low blood sugars Hg stable 10.4 P: Wants to switch to oral Tylenol only today Encouraged to ambulate for bowel movement With baby in special care nursery educated on importance of resting while she can, keeping up a good diet and self care Will start pumping at least Q3 hours to establish milk supply Plans to stay full three days and wants to go hotel status if daughter has to stay
[2019-10-06 07:46] VITALS: BP 109/74; PULSE 92; RESP 16; TEMP 36.7; O2SAT 100
[2019-10-06] MEDS: Senna/Docusate Sodium 1 Tablet PO (09:32)
[2019-10-06] MEDS: Sodium Chloride 0.65% 1 SPRAY SPRAY.BTL 2 SPRAY NASAL (13:13)
[2019-10-06 13:31] VITALS: BP 113/67; PULSE 89; RESP 16; TEMP 36.7; O2SAT 99
[2019-10-06] MEDS: Azithromycin 250 MG Tablet 500 MG PO (16:33)
[2019-10-06] MEDS: Acetaminophen 500 MG Tablet 1000 MG PO (16:36)
[2019-10-06 19:41] VITALS: BP 112/73; PULSE 80; RESP 16; TEMP 36.7
[2019-10-07] MEDS: Ibuprofen 600 MG Tablet PO ×2 (00:23→10:27)
[2019-10-07 00:54] VITALS: BP 116/76; PULSE 76; RESP 14; TEMP 36.6
[2019-10-07 09:08] VITALS: BP 118/78; PULSE 90; RESP 16; TEMP 36.5; O2SAT 98
--- NOTE | 2019-10-07 10:03 | PCM.PN.OB ---
Subjective: This entry is for today at 0755 S: Pain will controlled, tolerating diet, passing flatus; infant in NICU, she is pumping/bottle feeding with attempts at ; infant improving and being weaned off 02 at this time; c/o sinus congestion; plans to go on hotel status today Objective: AVSS Nipples mildly irritated Fundus firm, midline, lochia small; LTCS incision covered with steri strips, dry and intact,well approximated with moderate amount of dried bloody drainage noted - Physical Exam Vitals/I&O's: Vital Signs Temp Pulse Resp BP Pulse Ox 97.7 F L 90 16 118/78 98 10/07/19 09:08 10/07/19 09:08 10/07/19 09:08 10/07/19 09:08 10/07/19 09:08 Oxygen Delivery Method Room Air Weight: 136 lb Body Mass Index (BMI) 24.0 Intake and Output for Last 24 Hours 10/05/19 10/06/19 10/07/19 23:59 23:59 23:59 Intake Total 3544.09 / 3544.09 Output Total 160 / 160 800 / 800 Balance 3384.09 / 3384.09 -800 / -800 General: Alert, Oriented x3, Cooperative, No apparent distress HEENT: PERRLA, EOMI Oral: Moist Mucosa Neck: Supple Lungs: Clear to auscultation, Normal air movement Cardiovascular: Regular rate, Regular Rhythm Abdomen: Bowel Sounds Present, Soft, Non Tender, Non-Distended, Passing Flatus Extremities: No edema, Capillary Refill Less than 3 Seconds, No Calf Tenderness Musculoskeletal: No Tenderness to Palpation of Joints or Extremities Lymphatic: No Cervical, Supraclavicular, or Inguinal Adenopathy Neurological: Cranial nerves II-XII grossly intact, Deep Tendon Reflexes 2+/4 and Symmetrical, Neuro grossly intact Psych/Mental Status: Normal Affect, Appropriate, Alert and oriented to time, place, person, mood and affect Current Medications Acetaminophen (Tylenol) 1,000 mg PO Q8H PRN PRN Reason: Pain Score 1-3/10 Last Admin: 10/06/19 16:36 Dose: 1,000 mg Documented by: Azithromycin (Zithromax) 500 mg PO Q24 TIANNA Stop: 10/10/19 13:31 Last Admin: 10/06/19 16:33 Dose: 500 mg Documented by: Bisacodyl (Dulcolax) 10 mg RECTAL UD PRN PRN Reason: If no BM Hydrocortisone (Hytone) 1 applic TOPICAL TID PRN PRN; Protocol PRN Reason: Discomfort Naloxone HCl 4 mg/ Dextrose 504 mls @ 0 mls/hr IV .Q0M PRN; Protocol PRN Reason: To maintain Resp. rate >10 Ibuprofen (Motrin) 600 mg PO Q6H PRN PRN PRN Reason: Pain Score 1-3/10 Last Admin: 10/07/19 00:23 Dose: 600 mg Documented by: Methylergonovine Maleate (Methergine) 0.2 mg IM X1 PRN PRN Reason: Uterine Atony Oxycodone HCl (Oxyir) 5 - 10 mg PO Q4H PRN PRN PRN Reason: Pain Score 4-10/10 Senna/Docusate Sodium (Senokot-S, Sylvia-Colace) 0 tablet PO DAILY PRN PRN Reason: Constipation Last Admin: 10/06/19 09:32 Dose: 1 tablet Documented by: Simethicone (Mylicon) 80 mg PO PCHS PRN PRN Reason: Indigestion/stomach pain Sodium Chloride ([place] Nasal [place]) 2 spray NASAL TID PRN PRN PRN Reason: NASAL DRYNESS Last Admin: 10/06/19 13:13 Dose: 2 spray Documented by: Zolpidem Tartrate (Ambien (Generic)) 5 mg ORAL QHS PRN PRN Medical Necessity - Tobacco Use Smoking Status: Never smoker Assessment/Plan All Active Problems 35 weeks gestation of (Acute) 36 weeks gestation of (Acute) Spontaneous rupture of amniotic membranes (Acute) distress affecting delivery (Acute) A: 33yo G5 now [id number] delivered via AT 40w3d gestation POD #2, normal involution, normal /postoperative course Mild anemia Sinus infection P: Discharge teaching completed Discharge to home/hotel status today Iron rich foods, cooking methods, food combinations to enhance iron absorption Continue Zithromax, 250mg QD x 4 beginning tomorrow RTO 2weeks for incision check, 6 weeks for exam
[2019-10-07] MEDS: Senna/Docusate Sodium 1 Tablet PO (10:27)
[2019-10-07] MEDS: Azithromycin 250 MG Tablet 500 MG PO (10:28)
[2019-10-07 12:25] VITALS: BP 118/78; PULSE 90; RESP 16; TEMP 36.5
--- NOTE | 2019-10-07 12:37 | NURSING ---
Pt to [facility] d/t infant being in SCN
== END 2019-10-07 12:30 | disposition home or self-care (01) | DRG 788 ==
PROVIDERS: Admitting Provider Obstetrics & Gynecology; Referring Provider Obstetrics & Gynecology; Visit Provider Obstetrics & Gynecology
DX: O34.211 Maternal care for low transverse scar from previous cesarean delivery (principal); O42.913 Preterm premature rupture of membranes, unspecified as to length of time between rupture and onset of labor, third trimester; Z3A.36 36 weeks gestation of pregnancy; Z37.0 Single live birth; O76 Abnormality in fetal heart rate and rhythm complicating labor and delivery; O69.1XX0 Labor and delivery complicated by cord around neck, with compression, not applicable or unspecified
CPT/HCPCS: 59025; 59050; 85025; 85027; 86850; 86900; 86901; 99218; 99251; J7120; A4216; G0378; G0463; J2405

== ENCOUNTER → 2020-11-02 | Outpatient (CLI) | payer BC, SELFPAY ==
[2019-10-05 08:17] VITALS: BMI 24.0
[2020-11-06 19:51] LABS: HPV Reflexed? NOT INDICATED
== END | disposition home or self-care (01) ==
LOC: LABSPEC 13:11
PROVIDERS: Visit Provider Obstetrics & Gynecology
DX: Z12.4 Encounter for screening for malignant neoplasm of cervix (principal)
CPT/HCPCS: 88175; G0145

== ENCOUNTER → 2020-12-21 15:39 | Outpatient (CLI) | payer BC, SELFPAY ==
[2019-10-05 08:17] VITALS: BMI 24.0
[2020-12-21 18:52] LABS: hCG Titer Quant., Serum 7228 mIU/mL (1-3)
== END ==
PROVIDERS: Visit Provider Obstetrics & Gynecology
DX: N91.2 Amenorrhea, unspecified (principal)
CPT/HCPCS: 36415; 84702; 84703

== ENCOUNTER → 2020-12-28 | Outpatient (CLI) | payer BC, SELFPAY ==
[2019-10-05 08:17] VITALS: BMI 24.0
[2021-01-02 03:06] LABS: Chlamydia By Nucleic Acid AMP Negative (Negative)
[2021-01-02 11:00] LABS: Gonococcus By Nucleic Acid AMP Negative (Negative)
== END | disposition home or self-care (01) ==
LOC: LABSPEC 14:10
PROVIDERS: Visit Provider Obstetrics & Gynecology
DX: Z34.81 Encounter for supervision of other normal pregnancy, first trimester (principal); Z11.3 Encounter for screening for infections with a predominantly sexual mode of transmission
CPT/HCPCS: 87491; 87591

== ENCOUNTER 2021-01-09 23:46 | Emergency (ER) | payer BC, SELFPAY ==
[2019-10-05 08:17] VITALS: BMI 24.0
[2021-01-09 23:47] VITALS: BP 135/82; PULSE 86; RESP 14; TEMP 36.7; O2SAT 98; BMI 18.8
[2021-01-10 00:22] LABS: Absolute Neutrophil Count 3.8 X10^3/uL (2.0-7.7); Basophil# 0.02 X10^3/uL; Basophil% 0.3 % (0-1); Eosinophil# 0.06 X10^3/uL; Eosinophils% 0.9 % (0-5); Hematocrit 39.5 % (37-47); Hemoglobin 13.3 g/dL (12.0-15.0); Lymphocyte % 31.7 % (19-41); Mean Corp Hgb Conc 33.7 g/dL (32-36); Mean Corpuscular Hgb 29.4 pg (27.0-32.0); Mean Corpuscular Volume 87.4 fL (81-99); Mean Platelet Vol. 8.9 fl (6.2-12.0); Monocyte% 9.1 % (0-10); NRBC Flagged by Analyzer 0 % (0-5); Neutrophil # 3.82 X10^3/uL (2.7-7.7); Neutrophil % 57.7 % (47-70); Platelet Count 210 K/mm3 (150-450); RBC Distribution Width CV 11.5 % (11.6-14.6); RBC Distribution Width SD 36.6 fl (35.1-43.9); Red Blood Count 4.52 M/mm3 (4.2-5.4); White Blood Count 6.6 K/mm3 (4.4-11.0)
[2021-01-10 00:36] LABS: Anion Gap 4 (5-15); BUN 11 mg/dL (7-18); BUN/Creat Ratio 14.7 RATIO (10-20); Calcium,Total 9.4 mg/dL (8.5-10.1); Chloride 106 mmol/L (98-107); Creatinine, Serum 0.75 mg/dL (0.55-1.02); EST Glomerular Filtration Rate 95 mL/min (>60); Est Glom Filt Rate - Afr Amer 115 mL/min (>60); Estimated Creatinine Clearance 80.98 ml/min; Glucose 107 mg/dL (74-106); Potassium 3.5 mmol/L (3.5-5.1); Sodium Level 137 mmol/L (136-145)
[2021-01-10 01:04] LABS: hCG Titer Quant., Serum 3796 mIU/mL (1-3)
--- NOTE | 2021-01-10 01:23 | US_ITS ---
We are attempting to reach an attending provider to discuss findings. An addendum with communication details will be sent when the communication is complete. STUDY: FIRST TRIMESTER OBSTETRICAL ULTRASOUND REASON FOR EXAM: Female, 35 years old 8 weeks, bleeding LMP: 10/25/2020 TECHNIQUE: Transvaginal TECHNICAL QUALITY: Adequate. PRIOR ULTRASOUND: None. FINDINGS: There is a visualized low-lying intrauterine gestational sac measuring 8.6 mm consistent within abnormal appearing thickened inhomogeneous endometrium that measures up to 2.6 cm. There is a teardrop shaped appearing gestational sac with small focus of internal echogenicity that was not consistent on this study. The technologist visualized this structure early and then was not well-visualized after that. Images at approximately 2:13 AM demonstrating elongated cystic structure with echogenicity. Doppler flow was place and there is no visualized internal color flow in this area. There is no demonstrated yolk sac. The placenta is non-visualized. There is no demonstrated embryo ( pole). The estimated gestation age (EGA) by LMP is 11 weeks, 0 days. The estimated gestation age (EGA) by US is 5 weeks, 5 days. The uterus measures 7.9 x 5.6 x 5.2 cm. There is no demonstrated uterine fibroid. The cervix is closed. The right ovary measures 2.4 x 2.0 x 1.5 cm. There is no right ovarian cyst. There is no visualized right adnexal mass or complex lesion. The left ovary measures 2.1 x 1.6 x 2.0 cm. There is no left ovarian cyst. There is no visualized left adnexal mass or complex lesion. There is no fluid in the cul de sac. US/Transvaginal w/Preg US IMPRESSION: Heterogeneous thickened endometrium with a low-lying teardrop shape, intrauterine gestational sac with avascular ill-defined internal echogenicity, which which appears to be migrating towards the lower uterine segment most consistent with spontaneous in progress. See image #45 series 1 Electronically Signed: Jami Cramer MD at 3:25 EDT Tel , Service support ,
[2021-01-10 02:05] VITALS: BP 118/85
--- NOTE | 2021-01-10 02:22 | EDS_ITS ---
HPI HPI - Female History of Present Illness Chief Complaint: Vag Bld, Preg Informant: patient Pain Pain: Positive for Pelvic Pain Onset: Yesterday Quality: Positive for Cramping Location: Suprapubic Current Severity: Mild Maximum Severity: Moderate Bleeding Issue: Positive for Vaginal bleeding and Passing clots Onset: Yesterday Associated Symptoms Associated Symptoms: Negative for Dysuria Test: Positive P: 3 Ab: 2 Narrative Narrative: Patient presents with concerns that she is having a miscarriage. She is currently 8 weeks . She states she did have an ultrasound performed in the office 2 weeks ago. She started spotting late last week and last evening developed bright red bleeding with large clots. Blood type is O+. PFSH PFSH Home Medications Plus (calcium carb) 1 tab PO DAILY 06/14/15 [History Last Taken 10/04/19 19:00] progesterone micronized 200 mg PO BID 01/10/21 [History Last Taken Unknown] Allergy/AdvReac Type Severity Reaction Status Date / Time iodine Allergy Rash Verified 01/09/21 23:50 Social History Smoking Status: Never smoker ROS ROS ED Constitutional Constitutional ED: Denies chills or fever(s) Eyes Eyes: Denies change in vision ENT ENT ED: Denies sore throat Cardiovascular Cardiovascular: Denies chest pain Respiratory/Chest Respiratory/Chest: Denies cough or dyspnea Gastrointestinal Gastrointestinal: Reports abdominal pain; Denies diarrhea, nausea or vomiting Genitourinary Genitourinary ED: Reports other Details: Vaginal bleeding and passing of clots ; Denies dysuria Musculoskeletal Musculoskeletal: Denies back pain Integumentary Denies rash Neurologic Neurologic: Denies headache(s) or weakness Psychiatric Psychiatric: Denies anxiety or depression Endocrine Endocrinology: Denies polydipsia or polyuria Allergic/Immunologic Allergic/Immunologic ED: Denies urticaria EXAM Physical Exam Const Vital Signs: 01/09/21 23:47 01/10/21 02:05 01/10/21 03:49 Temperature 98.1 F Temperature Source Temporal Pulse Rate 86 72 Respiratory Rate 14 16 Blood Pressure 135/82 H 118/85 H 104/78 Blood Pressure Mean 99 96 Pulse Ox 98 100 Oxygen Delivery Method Room Air Positive well nourished and well developed General Appearance ED: well developed HEENT Reports normocephalic and head/scalp atraumatic Eyes PERRL and EOMs intact bilaterally Neck supple Chest Wall inspection of chest normal and palpation of chest normal Resp normal respiratory effort and clear to auscultation bilaterally Cardio regular rate and regular rhythm GI normal to inspection, nondistended, normoactive bowel sounds Palpation: soft Back/Spine no CVA tenderness Extremity normal to inspection Neuro oriented x3 and no sensory deficits noted Sensorium / Orientation: alert Motor Exam: strength 5/5 throughout Psych mental status grossly normal Skin no rashes or lesions noted MDM MDM MDM Narrative Medical decision making narrative: Patient declined anything for pain while the emergency room. Lab Data Attestation: I reviewed the patient's lab results. Labs: Laboratory Results - last 24 hr 01/10/21 01/10/21 01/10/21 00:20 00:20 00:20 WBC 6.6 RBC 4.52 Hgb 13.3 Hct 39.5 MCV 87.4 MCH 29.4 MCHC 33.7 RDW Std Deviation 36.6 RDW Coeff of Edyta 11.5 L Plt Count 210 MPV 8.9 Immature Gran % (Auto) 0.300 Neut % (Auto) 57.7 Lymph % (Auto) 31.7 [place] % (Auto) 9.1 Eos % (Auto) 0.9 Baso % (Auto) 0.3 Absolute Neuts (auto) 3.8 Absolute Lymphs (auto) 2.10 Nucleated RBC % 0 Sodium 137 Potassium 3.5 Chloride 106 Carbon Dioxide 27.0 Anion Gap 4 L BUN 11 Creatinine 0.75 Estim Creat Clear Calc 80.98 Est GFR (MDRD) Af Amer 115 Est GFR (MDRD) Non-Af 95 BUN/Creatinine Ratio 14.7 Glucose 107 H Calcium 9.4 HCG, Quant 3796 H Radiography Diagnostic Testing: Radiology Impression Obstetrics Ultrasound 01/10/21 01:23 IMPRESSION: Heterogeneous thickened endometrium with a low-lying teardrop shape, intrauterine gestational sac with avascular ill-defined internal echogenicity, which which appears to be migrating towards the lower uterine segment most consistent with spontaneous in progress. See image #45 series 1 Electronically Signed: Jami Cramer MD at 3:25 EDT Tel , Service support , ADDENDUM: 01/10/21 0332 IMPRESSION: Heterogeneous thickened endometrium with a low-lying teardrop shape, intrauterine gestational sac with avascular ill-defined internal echogenicity, which which appears to be migrating towards the lower uterine segment most consistent with spontaneous in progress. See image #45 series 1 N.B. : The above information has been verbally conveyed by Jami Cramer MD to Gisele Pedro MD, on 01/10/2021 03:25:57 (ET). Electronically Signed: Jami Cramer MD at 3:25 EDT Tel , Service support , Treatment and Re-Evaluation Comments:: I talked to Dr. Rupali Teresa, on-call for Dr. Bland after getting the patient's labs back. She did ask for an ultrasound to see if the patient still had retained products or had passed everything. Ultrasound returns with low-lying teardrop shaped gestational sac. Test results discussed with patient and at bedside. She does realize that she is in the process of having a spontaneous miscarriage. Bleeding is significantly improved at this point. At this time she does not wish to have an emergency D&C. She is scheduled to see her SENIOR BIOSTATISTICIAN/GROUP LEADER later today and wishes to follow-up with him at that appointment to discuss her options. Patient is given return instructions. Discharge Plan Triage Chief Complaint: Vag Bld, Preg ED Provider: Gisele Pedro Dx/Rx/DC Orders Clinical Impression: Incomplete miscarriage Instructions: ED MISCARRIAGE Incomplete Prescriptions: No Action Plus (calcium carb) 1 EACH tablet 1 tab PO DAILY RF: 0 progesterone micronized 200 mg capsule 200 mg PO BID RF: 0 Primary Care Provider: Zaid Amaro Referrals: Zaid Amaro DO [Primary Care Provider] - Clifton Bland MD [STAFF PHYSICIAN] - Keep Rani appointment Disposition Disposition: Home, self care Discharge Date/Time: 01/10/21 03:50
[2021-01-10 03:49] VITALS: BP 104/78; PULSE 72; RESP 16; O2SAT 100
== END 2021-01-10 03:50 | disposition home or self-care (01) ==
PROVIDERS: Emergency Provider Emergency Medicine; PCP Student in an Organized Health Care Education/Training Program
DX: O03.4 Incomplete spontaneous abortion without complication (principal); Z3A.08 8 weeks gestation of pregnancy
CPT/HCPCS: 76817; 80048; 84702; 85025; 99282; A4216

== ENCOUNTER 2021-01-10 11:12 | Day surgery (SDC) | payer BC, SELFPAY ==
[2021-01-09 23:47] VITALS: BMI 18.8
[2021-01-10] VITALS (9 sets, daily range): BP systolic 99–124; BP diastolic 68–79; PULSE 62–80; RESP 16; TEMP 36.4–36.6; O2SAT 100; BMI 18.6
--- NOTE | 2021-01-10 11:06 | HP.PCM_ITS ---
History and Physical Date of Admission: 01/10/21 Surgical History and Physical Date: 01/10/2021 Name: ROSANGELA DIAMOND Age: 35 Date of : 1985 Rosangela Diamond, a 35 year old female 2 1 3 0 2, presents for Suction D and E. on January 10, 2021 at 1:30. -- Incomplete Miscarriage -- Rosangela presents here today with spouse(Rogers) for concerns regarding threatened AB with mild to moderate cramping at this time. 35 y.o. G 6 P 2 non- smoker with bleeding that started very light on Friday01/05/21 and continued through the weekend and worsened with heavy bleeding yesterday afternoon through the evening. Passed a lot of clots and some of large egg size. Had been to the ED early this morning and had an US with low hanging sac. Medication and Allergy lists up-dated. MEDICATIONS HISTORY: Current medications prescribed by our practice are: 1. Prometrium 200 mg capsule, 1 PO every 12 hours through 11 wks gestation Patient is also takin. Vitamin tablet, 1 PO QD ALLERGIES: No Known Drug Allergies, Iodine; Iodine Containing and Purpuric rash Infections - Chicken pox and occ UTI Illnesses - none Accidents - None Hospitalizations - Childbirth and see surgery repap was normal; Review of Systems: GENERAL - Denies fever, or chills SKIN - Denies skin changes EYES - Denies visual changes EARS - Denies difficulty hearing NOSE - Denies nasal congestion or bleeding MOUTH - Denies sore throat or difficulty swallowing NECK - Denies pain or swelling RESPIRATORY - Denies shortness of breath or wheezing CARDIOVASCULAR - Denies palpitations or chest pain GASTROINTESTINAL - Denies nausea, vomiting, diarrhea, constipation GENITOURINARY - Denies dysuria, frequency of urination, incontinence of urine MUSCULOSKELETAL - Denies joint or muscle pain NEUROLOGICAL - Denies localized numbness or weakness PSYCHIATRIC - Denies depression or anxiety ENDOCRINE - Denies heat or cold intolerance, weight loss or gain HEMATO-IMMUNOLOGIC - Denies excesive bleeding with cuts SOCIAL HISTORY: Alcohol Use - denies drinking Smoking - Never Diet - balanced Diet, caffeine < 2 drinks per day and water intake- 3 quarts daily Lifestyle - Exercise - regular and walking Seat Belt Use - always 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 - [employer] 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 Drug Use - denies use of street drugs Sexual Activity - Residence - lives with Place of - [place], [place] Hours Worked - 40 hours per week Spouse-Sig Other Name - Rogers Spouse-Sig Other Occupation - [employer] - [employer]; underwriting technician Spouse-Sig Other Phone No - [phone] Children Name(s) - Tylor 09/17 EMMY ( SIDS 6 weeks old) Sumit(18) Eleni (20) Control - NONE FAMILY HISTORY: MENSTRUAL HISTORY: LMP Known?- DefiniteAmount/Duration - normal amount, Regularity - Regular, Frequency - monthly days, LMP - 01/05/21, Age Onset Menarche - 14 PAST PREGNANCIES: Total Pregnancies - 6; Full Term Pregnancies - 2; Premature - 1; Abortions, Induced - 0; Abortions, Spontaneous - 3; Ectopics - 0; Multiple Births - 0; Living Children - 2 SURGICAL HISTORY: 1. 03/09/2018 ; Clifton Bland M.D. - 2. 10/05/2019 ; Clifton Bland M.D. - 3. 09/02/2016 ; Dr Og Guerrier - 4. 06/15/2015 suction D and E ; Clifton Bland M.D. - 5. 09/01/2004 [place] [facility] ; - 6. 09/01/1997 oral surgery ; - PHYSICAL EXAM BP- 122/78 Sitting, Right arm, regular cuff Weight- 104.61022 lbs Height- 62.75 inch BMI:18.61 CONSTITUTIONAL - NAD, well nourished, and well developed SKIN - No rash, lesions, or ulcers HEENT - Normocephalic, PERRLA, EOMI NECK - No nodes, no nuchal rigidity and thyroid normal size and texture LYMPH NODES - Palpation of lymph nodes in neck and groins within normal limits LUNGS - CTA x2 without wheezes, crackles or rales CARDIAC - Regular rate and rhythm without rubs, murmurs, or gallops BREAST - No dominant masses, no tenderness, no axillary adenopathy, no nipple discharge, no skin changes ABDOMEN - Without hepatosplenomegaly, distention, masses, rebound, or guarding; normal bowel sounds; no hernias EXTREMITIES - No edema or calf tenderness NEUROLOGICAL - Cranial nerves II-XII grossly intact PSYCHIATRIC - A and O to time, place, person, mood and affect ASSESSMENT/PLAN: 1. Incomplete Spontaneous Without Complication 7 week IUP with bleeding and cramping. Incomplete by u/s at ER overnight. Discussed options for treatment and plan to proceed with Suction D and E. Discussed RBAs and all questions answered.
[2021-01-10 11:57] LABS: Hematocrit 43.7 % (37-47); Hemoglobin 14.3 g/dL (12.0-15.0); Mean Corp Hgb Conc 32.7 g/dL (32-36); Mean Corpuscular Hgb 28.7 pg (27.0-32.0); Mean Corpuscular Volume 87.6 fL (81-99); Mean Platelet Vol. 9.3 fl (6.2-12.0); Platelet Count 238 K/mm3 (150-450); RBC Distribution Width CV 11.7 % (11.6-14.6); RBC Distribution Width SD 37.2 fl (35.1-43.9); Red Blood Count 4.99 M/mm3 (4.2-5.4); White Blood Count 7.9 K/mm3 (4.4-11.0)
[2021-01-10] MEDS: Lactated Ringers 1,000 ML 100 ML IV (12:01)
--- NOTE | 2021-01-10 13:30 | POC_PTH ---
PATIENT: AUBREY DIAMOND LOC: [facility] [place] U#:[id number] AGE/SX: 35/F ROOM: RE01/10/[address]: Dr. Clifton Bland MD : 1985 BED: DIS: 01/10/2021 SPEC #: [id number] RECD: 01/10/21 15:00 STATUS: ANJEL REShikha #: [id number] KASIE: 01/10/21 13:[address]: Clifton Bland DEPT: SURGICAL PATHOLOGY RECD BY: Latha Richardson ENTERED: 01/11/21 10:19 SP TYPE: PROD CONC OTHR DR: Dr. Zaid Amaro, DO Tissues: Product of conception, NOS Procedures: Surgery Specimen Level IV HEADER OPERATION: Suction dilation and curettage PRE-OP DIAGNOSIS: Missed AB TISSUE SUBMITTED: Uterine contents MICROSCOPIC DIAGNOSIS Uterine contents: [place]id[place], gestational endometrium and immature chorionic villi (products of conception). SJ:link 01/12/2021 MICROSCOPIC DESCRIPTION Slides are reviewed. GROSS DESCRIPTION Received in fixative is one container labeled with the patient's name and designated uterine contents. The specimen consists of multiple irregular fragments of soliz-pink soft tissue mixed with blood clot that in aggregate measure 7 x 7 x 2 cm. tissue is not identified. Welding Specialist tissue is submitted in three cassettes. / SJ:link 01/11/21 TC:5 CPT: 26625
--- NOTE | 2021-01-10 13:36 | PCM.OPRPT ---
Problems Associated Problem List Diagnoses (1) Incomplete miscarriage: Report of Operation Date of Procedure: 01/10/21 Pre-Operative Diagnosis: Inevitable Miscarriage Post-Operative Diagnosis: Inevitable Miscarriage Surgery/Procedure Performed:: Suction Dilation and Evacuation Description of Surgical Findings:: 8 cm uterus with products of conception present Type of Anesthesia: MAC Anesthesiologist: Eben Rivas Specimen's removed: Products of conception Estimated Blood Loss (mL): Minimal Fluids Replaced: Crystalloid Description of Procedure: Surgeon: Clifton Bland MD, FACOG Indication: 35 year old patient with incomplete AB at 8 weeks gestation with a 8 week IUP without FHTs. Pt has been counseled regarding the risks, benefits, and alternatives of this procedure and all questions were answered. Procedure: Patient was taken to the operating room where she was given IV sedation. The patient was prepped and draped in the usual sterile fashion. The anterior cervix was grasped with a tenaculum and cervix was dilated. An 8 mm suction curette was inserted into the cervix and all contents removed. Uterus was gently curetted and remaining tissue was removed by reinserting the suction curette. The patient tolerated the procedure well and was taken to the recovery room in satisfactory condition. Sponge, instruments and needle counts were all correct. There were no apparent complications of the surgery. Grafts/Implants Used: None Complications None Admit VTE Documentation VTE Present on Admission: Yes VTE Mechan Device Prophylaxis: SCD's
--- NOTE | 2021-01-10 13:40 | PCM.DC ---
Discharge Instructions Diet Discharge Diet: No restrictions Activity Discharge Activity: No Restrictions, May Shower and May Take a Tub Bath May resume sexual activity in: 1-2 weeks Additional Activity Instructions:: Nothing in the vagina for 1 week please; no lifting more than 20-25 lbs for 1 weeks. Use Ibuprophen 800 mg orally every 8 hours as needed for pain. Can also add Tylenol 1000 mg every 8 hours if needed for pain. Drink lots of water. Call if bleeding more than a pad per hour. Dressing / Incision Call your doctor if you observe: Fever of 101 or Higher, Inability to urinate, Inability to have a bowel movement and Using more than one pad per hour Follow Up Care Please Follow Up With: Clifton Bland MD When: 2 to 3 weeks Test Results: Test results from this visit will be discussed in further detail at your follow-up appointment, if applicable. Discharge Plan Admission Primary Reason for Your Visit: Miscarriage Attending Provider: Clifton Bland Primary Care Provider: Zaid Amaro Discharge Orders/Prescriptions Prescriptions: Continued Plus (calcium carb) 1 EACH tablet 1 tab PO DAILY RF: 0 Discontinued progesterone micronized 200 mg capsule 200 mg PO BID RF: 0 Referrals / Follow Up: Zaid Amaro DO [Primary Care Provider] - Disposition Disposition (needs filled in before D/C Order can be placed): Home, self care
--- NOTE | 2021-01-10 14:58 | SUR.PREOP ---
[facility] called per protocol
== END 2021-01-10 15:17 | disposition home or self-care (01) ==
LOC: SDC 11:14 → AC 11:14
PROVIDERS: PCP Student in an Organized Health Care Education/Training Program; Referring Provider Obstetrics & Gynecology; Visit Provider Obstetrics & Gynecology
PROC: (CPT 59812; principal; 2021-01-10 13:15)
DX: O03.4 Incomplete spontaneous abortion without complication (principal)
CPT/HCPCS: 01965; 59812; 85027; 86850; 86900; 86901; 87426; 88305; J7120; J2405

== ENCOUNTER 2021-11-19 05:27 | Emergency (ER) | payer OTHER, BC, SELFPAY ==
[2021-11-19 05:31] VITALS: BP 110/72; PULSE 94; RESP 18; TEMP 37.2; O2SAT 100; BMI 19.8
--- NOTE | 2021-11-19 06:12 | EX.ED.DYSGE1 ---
HPI History of Present Illness Chief Complaint: Nausea/Vomiting Informant: patient Narrative Narrative: Patient is a 35-year-old female presenting with nausea, vomiting and diarrhea. She also has associate abdominal discomfort. She states her symptoms start about 6 hours prior to arrival. She states she is had multiple episodes of vomiting diarrhea. Denies any black or blood in her vomit or her stool. Stop able to keep anything down. Is complaining of lower abdominal pain as well as epigastric pain. Denies any sick contacts. States she had a salad with chicken that was fully cooked and spinach that she washed earlier tonight. Denies any fever or chills. Denies any sick contacts. Denies any recent antibiotics. Denies any history of C. difficile. No other complaints at this time. Has history of C-sections but no other abdominal surgeries. Last menstrual period was a week ago and she does not think she is . PFSH PFSH Home Medications Plus (calcium carb) 1 tab PO DAILY 06/14/15 [History Last Taken 11/18/21] ondansetron 4 mg PO Q6H PRN #14 tab 11/19/21 [Rx Last Taken Unknown] Allergy/AdvReac Type Severity Reaction Status Date / Time iodine Allergy Rash Verified 01/09/21 23:50 Social History Smoking Status: Never smoker ROS ROS ED Constitutional Constitutional ED: Denies chills or fever(s) Eyes Eyes: Denies change in vision ENT ENT ED: Denies ear pain Cardiovascular Cardiovascular: Denies chest pain Respiratory/Chest Respiratory/Chest: Denies dyspnea Gastrointestinal Gastrointestinal: Reports abdominal pain, diarrhea, nausea and vomiting; Denies constipation or melena Genitourinary Genitourinary ED: Denies dysuria or hematuria Musculoskeletal Musculoskeletal: Denies myalgias Integumentary Denies rash Neurologic Neurologic: Denies headache(s) or weakness Psychiatric Psychiatric: Denies depression EXAM Physical Exam Const Vital Signs: 11/19/21 05:31 Temperature 99.0 F Temperature Source Oral Pulse Rate 94 Respiratory Rate 18 Blood Pressure 110/72 Blood Pressure Mean 84 Pulse Ox 100 Oxygen Delivery Method Room Air Positive well nourished and well developed General Appearance ED: well developed HEENT Reports moist mucous membranes Eyes PERRL and EOMs intact bilaterally Neck supple Chest Wall inspection of chest normal Resp normal respiratory effort and clear to auscultation bilaterally Cardio regular rate, regular rhythm and no murmurs GI non-tender and non-distended Auscultation: hyperactive bowel sounds Palpation: soft; Negative for guarding Extremity normal to inspection Neuro oriented x3 Sensorium / Orientation: alert Motor Exam: Negative for general weakness Psych mental status grossly normal Skin no rashes or lesions noted and no wounds MDM MDM MDM Narrative Medical decision making narrative: Patient evaluated for 6 hours of vomiting diarrhea. Overall is well-appearing. Vital signs are normal. Is given IV fluids and Zofran. Will check basic belly labs and reevaluate. Patient has improvement. She feels better. Lab work unremarkable. Urinalysis does show 150 ketones consistent with dehydration. Patient given p.o. challenge in the ER. Will discharge home with Zofran. Not able to get a stool sample in the ER. Counseled return for precautions. I do not think further imaging is indicated. We will treat symptomatically at this time. Lab Data Attestation: I reviewed the patient's lab results. Labs: Laboratory Results - last 24 hr 11/19/21 11/19/21 11/19/21 06:10 06:10 07:08 WBC 8.7 RBC 4.74 Hgb 14.0 Hct 41.5 MCV 87.6 MCH 29.5 MCHC 33.7 RDW Std Deviation 38.5 RDW Coeff of Edyta 11.9 Plt Count 165 MPV 9.0 Immature Gran % (Auto) 0.300 Neut % (Auto) 92.5 H Lymph % (Auto) 2.7 L Guthrie % (Auto) 4.3 Eos % (Auto) 0.1 Baso % (Auto) 0.1 Absolute Neuts (auto) 8.0 H Absolute Lymphs (auto) 0.23 L Nucleated RBC % 0 Sodium 140 Potassium 3.8 Chloride 109 H Carbon Dioxide 26.0 Anion Gap 5 BUN 17 Creatinine 0.73 Estim Creat Clear Calc 87.90 Est GFR (MDRD) Af Amer 118 Est GFR (MDRD) Non-Af 98 BUN/Creatinine Ratio 23.4 H Glucose 131 H Calcium 9.0 Total Bilirubin 0.80 AST 18 ALT 23 Alkaline Phosphatase 68 Total Protein 7.3 Albumin 4.0 Globulin 3.3 Albumin/Globulin Ratio 1.2 Lipase 78 Urine Color Yellow Urine Clarity Sl. Cloudy Urine pH 6.0 Ur Specific [place] 1.020 Urine Protein 15 H Urine Glucose (UA) Normal Urine Ketones 150 A* Urine Occult Blood 10 H Urine Nitrite Negative Urine Bilirubin Negative Urine Urobilinogen 1 H Ur Leukocyte Esterase 100 H Urine RBC 0-5 SEEN Urine WBC 10-25 SEEN Ur Squamous Epith Cells 0-5 SEEN Urine Bacteria 0 SEEN Urine Mucus 0 SEEN Discharge Plan Triage Chief Complaint: Nausea/Vomiting ED Provider: Alejandra Patricio Dx/Rx/DC Orders Clinical Impression: Acute dehydration, Abdominal pain, vomiting, and diarrhea Instructions: ED Dehydration (Adult), ED Vomiting and Diarrhea ... Prescriptions: New ondansetron 4 mg tablet,disintegrating 4 mg PO Q6H PRN (Reason: nausea and vomiting) Qty: 14 RF: 0 No Action Plus (calcium carb) 1 EACH tablet 1 tab PO DAILY RF: 0 Primary Care Provider: Zaid Amaro Referrals: Zaid Amaro DO [Primary Care Provider] - Activity Restrictions/Additional Instructions: Follow-up with primary care doctor as needed. Drink plenty fluids. You may take soxs-vuv-[id number] Pepto-Bismol to help with diarrhea. Disposition Disposition: Home, Self Care
[2021-11-19 06:18] LABS: Absolute Lymphocyte Count 0.23 X10^3/uL (0.83-4.51); Basophil# 0.01 X10^3/uL; Basophil% 0.1 % (0-1); Eosinophil# 0.01 X10^3/uL; Eosinophils% 0.1 % (0-5); Hematocrit 41.5 % (37-47); Lymphocyte # 0.23 X10^3/ul (0.83-4.51); Lymphocyte % 2.7 % (19-41); Mean Corp Hgb Conc 33.7 g/dL (32-36); Mean Corpuscular Hgb 29.5 pg (27.0-32.0); Mean Corpuscular Volume 87.6 fL (81-99); Monocyte# 0.37 X10^3/uL; Monocyte% 4.3 % (0-10); NRBC Flagged by Analyzer 0 % (0-5); Neutrophil # 8.02 X10^3/uL (2.7-7.7); Neutrophil % 92.5 % (47-70); POSITIVE DIFFERENTIAL YES; Platelet Count 165 K/mm3 (150-450); RBC Distribution Width CV 11.9 % (11.6-14.6); RBC Distribution Width SD 38.5 fl (35.1-43.9); Red Blood Count 4.74 M/mm3 (4.2-5.4); White Blood Count 8.7 K/mm3 (4.4-11.0)
[2021-11-19 06:19] LABS: Differential Indicated SCAN CRITERIA MET
[2021-11-19] MEDS: 0.9% Normal Saline 1,000 ML 1000 ML IV (06:27)
[2021-11-19] MEDS: Ondansetron 4 MG/2 ML Vial IV (06:27)
[2021-11-19 06:35] LABS: ALB/GLOB Ratio 1.2 RATIO (0.9-2.4); AST(SGOT) 18 U/L (15-37); Alanine Aminotransfer ALT/SGPT 23 U/L (13-56); Alkaline Phosphatase 68 U/L (45-117); Anion Gap 5 (5-15); BUN 17 mg/dL (7-18); BUN/Creat Ratio 23.4 RATIO (10-20); Chloride 109 mmol/L (98-107); Creatinine, Serum 0.73 mg/dL (0.55-1.02); EST Glomerular Filtration Rate 98 mL/min (>60); Est Glom Filt Rate - Afr Amer 118 mL/min (>60); Globulin 3.3 g/dL (2.2-4.2); Glucose 131 mg/dL (74-106); Lipase 78 U/L (73-393); Potassium 3.8 mmol/L (3.5-5.1); Protein, Total 7.3 g/dL (6.4-8.2); Sodium Level 140 mmol/L (136-145)
[2021-11-19 07:15] LABS: Bacteria 0 SEEN /hpf (None Seen); Mucous, Urine 0 SEEN /hpf (<or=2+)
[2021-11-19 07:24] LABS: Color, Urine Yellow (Yellow); Glucose, Dipstick Normal (Normal); Leukocyte Esterase-Dipstick 100 /ul (Negative); Nitrite-Dipstick Negative (Negative); Occult Blood-Urine 10 /ul (Negative); Protein-Dipstick 15 mg/dl (Negative); Urine Bilirubin Dipstick Negative (Negative); Urine Clarity Sl. Cloudy (Clear); Urine Urobilinogen 1 mg/dl (Normal)
[2021-11-19 07:26] LABS: Ketone-Dipstick 150 mg/dl (Negative)
[2021-11-19 07:32] LABS: Red Blood Cells-Urine 0-5 SEEN /hpf (0-5); Squamous Epithelial Cells - UA 0-5 SEEN /hpf (5-10); White Blood Cells 10-25 SEEN /hpf (0-5)
[2021-11-19 08:27] VITALS: BP 108/70; PULSE 90; RESP 16; TEMP 37.1; O2SAT 98
== END 2021-11-19 08:28 | disposition home or self-care (01) ==
PROVIDERS: Emergency Provider Emergency Medicine; PCP Student in an Organized Health Care Education/Training Program; Visit Provider Emergency Medicine
DX: R11.2 Nausea with vomiting, unspecified (principal); R10.9 Unspecified abdominal pain; R19.7 Diarrhea, unspecified; E86.0 Dehydration
CPT/HCPCS: 80053; 81001; 83690; 85025; 87493; 87506; 96361; 96374; 99283; J7030; A4216; J2405

== ENCOUNTER → 2021-12-27 | Outpatient (CLI) | payer OTHER, BC, SELFPAY ==
--- NOTE | 2021-12-27 10:25 | BI_ITS ---
MAMMOGRAPHY - BILATERAL SCREENING REASON FOR EXAM: Female, 36 years old. Routine annual screening examination. PERTINENT HISTORY: Grandmother with breast cancer. Aunt with breast cancer. TECHNIQUE: Digital bilateral breast claude (3D mammographic acquisition) in the CC and MLO projections. 2-D mediolateral oblique (MLO) and craniocaudad (CC) views of both breasts were obtained. CAD: Full Field Digital Mammography with Computer Added Detection was performed. COMPARISON: None. Baseline examination. FINDINGS: Breast Composition: The breasts are extremely dense, which lowers the sensitivity of mammography. There are no dominant masses or suspicious calcifications. No other significant abnormalities are identified. BI/SCRN MAMM (CAD)W/CLAUDE BILAT IMPRESSION: Negative screening mammogram. Yearly followup mammogram recommended. (A) ASSESSMENT CATEGORY: BIRADS Category 1: Negative. A letter regarding these results will be sent to the patient by the facility within 30 days. Approximately 10% of breast cancers are not detected by mammography. A normal mammogram should not delay biopsy of a clinically suspicious abnormality. [id number] Electronically Signed: Imtiaz Arora MD at 11:06 EDT ,
== END | disposition home or self-care (01) ==
LOC: OPBI 10:24
PROVIDERS: PCP Student in an Organized Health Care Education/Training Program; Visit Provider Obstetrics & Gynecology
DX: Z12.31 Encounter for screening mammogram for malignant neoplasm of breast (principal)
CPT/HCPCS: 77063; 77067

== ENCOUNTER 2022-07-19 08:29 | Day surgery (SDC) | payer OTHER, BC, SELFPAY ==
[2022-07-12 16:44] LABS: Absolute Lymphocyte Count 2.39 X10^3/uL (0.83-4.51); Absolute Neutrophil Count 3.4 X10^3/uL (2.0-7.7); Basophil# 0.05 X10^3/uL; Basophil% 0.8 % (0-1); Eosinophil# 0.08 X10^3/uL; Eosinophils% 1.2 % (0-5); Hemoglobin 13.1 g/dL (12.0-15.0); Lymphocyte # 2.39 X10^3/ul (0.83-4.51); Lymphocyte % 36.2 % (19-41); Mean Corp Hgb Conc 32.8 g/dL (32-36); Mean Corpuscular Hgb 28.6 pg (27.0-32.0); Mean Corpuscular Volume 87.3 fL (81-99); Mean Platelet Vol. 9.1 fl (6.2-12.0); Monocyte# 0.63 X10^3/uL; Monocyte% 9.5 % (0-10); NRBC Flagged by Analyzer 0 % (0-5); Neutrophil # 3.44 X10^3/uL (2.7-7.7); Neutrophil % 52.1 % (47-70); Platelet Count 207 K/mm3 (150-450); RBC Distribution Width CV 12.2 % (11.6-14.6); Red Blood Count 4.58 M/mm3 (4.2-5.4); White Blood Count 6.6 K/mm3 (4.4-11.0)
[2022-07-19 08:51] LABS: Internal QC Validated? YES +Cl - CLEAR BKGD; Pregnancy, Urine Negative Negative
[2022-07-19 08:52] VITALS: BP 122/79; PULSE 91; RESP 18; TEMP 36.5; O2SAT 100; BMI 19.1
[2022-07-19] MEDS: Lactated Ringers 1,000 ML 15 ML IV (09:01)
--- NOTE | 2022-07-19 09:04 | PCM.HP.BLA ---
History and Physical Date of Admission: 07/19/22 HISTORY AND PHYSICAL DATE OF SERVICE 07/19/22 Vital Signs ? 11/19/2204:31 06/18/2215:18 06/18/2215:33 Height 5 ft 3 in 5 ft 3 in 5 ft 3 in Weight: 111 lb 15.917 oz ? 110 lb 6 oz BMI 19.8 ? 19.5 BP 110/72 ? 151/91 H Respiration 18 ? ? Pulse 94 ? ? Temp 99.0 F ? ? Pulse Oximetry (%) 100 ? ? 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 Gisele Burch, DO) Recurrent UTI Surgical History?(Updated 06/18/22 @ 15:35 by Ofelia Apple) S/P S/P dilation and curettage S/P wisdom tooth extraction Family History?(Updated 06/18/22 @ 15:36 by Ofelia Apple) Mother HypertensionFather Hypertension CVA (cerebral vascular accident) ?? ? deceasedGrandmother Breast cancer Cancer of fallopian tubeAunt Breast cancer Social History?(Updated 06/18/22 @ 15:36 by Ofelia Apple) Smoking Status:? Never smoker alcohol intake:? current alcohol intake frequency: holidays/special occasions only substance use type:? does not use what type of physical activity do you participate in:? other details: Patient is PT frequency:? 5-6 times per week seatbelt use:? always do you feel safe at home:? Yes additional social history:? - [place] ? HPI consult tubal Details: AUBREY DIAMOND is a 36 year old who presents for discussion about permanent sterilization. She has had 2 prior sections and planned on tubal with last , however she had a miscarriage and never got to that point. She had 3 babies, on of sids at 5 months of age. 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 History ? ? ? 6 ? Elective abortions ? Hx Para ? ? ? 3 ? Spontaneous abortions ? Hx # Term Pregnancies ? Ectopic pregnancies ? Hx # Pregnancies ? Multiple births ? # of living children ? Past Pregnancies Del. Date Name GA/Weeks Outcome Route Bth Weight Infant Gen Labor Lgth Anesthesia Del Locatn Provider FOB Unknown Tylor (dec) ? Unknown Sumit ? Unknown Eleni ? Delivery Date:?? Last Updated by: Ofelia Apple ? ? ? SIDS at 5 weeks old ROS Const ROS Unobtainable: All systems reviewed & are unremarkable except as noted in H Resp Resp: Reports system reviewed and no additional complaints, except as documented; Denies cough GI GI: Reports as per HPI Psych Psych: Reports system reviewed and no additional complaints, except as documented Exam Const General: cooperative, healthy appearing, comfortable and no acute distress Resp Effort & Inspection: normal respiratory effort Skin General: no rashes or lesions noted Psych Appearance: grossly normal Speech and Movement: speech and movement normal Coding Level of Care Code Off vis,est,level 4 Diagnoses Contraceptive management? Z30.9 Assessment and Plan Assessment and Plan (1) Contraceptive management: ?Status:?Acute Plan pt desires permanent sterilization After discussing the patient's diagnosis and treatment plan options, patient wishes to proceed with surgical management. Plan to proceed with laparoscopic bilateral salpingectomy. ? I have discussed with the patient the risks, benefits, and alternatives of the procedure which include but are not limited to risks of anesthesia, bleeding, infection, possible damage to bowel, bladder, or surrounding vasculature which could lead to additional surgery to evaluate any complications.? Patient agrees to procedure and wishes to proceed.? ACOG/uptodate references given for additional information regarding procedure.? UPDATE- I have seen the patient and performed any clinically relevant updates to the history and physical exam. Gislee Burch DO
--- NOTE | 2022-07-19 09:05 | DCINST_ITS ---
Discharge Instructions Diet Discharge Diet: No restrictions Activity Discharge Activity: Return to Normal Activity, May Not Drive (for two weeks or while taking narcotic pain medications.), May Shower and May Take a Tub Bath (in 7 days) May resume sexual activity in: 1 week Weight Bearing Status: Full weight bearing Dressing / Incision Call your doctor if you observe: Using more than 1 pad per hour, Shortness of breath, Chest pain and Uncontrolled pain Suture Line Care: Avoid Pulling/Pushing and Avoid Pinching/Bending Remove Dressing in: 1 week (if present) Cleanse incision/area with: Soap & Water and Keep Dressing Clean & Dry Follow Up Care Please Follow Up With: Gisele Burch DO When: Call to make an appointment with your doctor for a follow up incision check in 1-2 weeks. Test Results: Test results from this visit will be discussed in further detail at your follow- up appointment, if applicable. Discharge Plan Admission Primary Reason for Your Visit: BILATERAL SALPINGECTOMY Attending Provider: Gisele Burch Primary Care Provider: Zaid Amaro Discharge Orders/Prescriptions Prescriptions: New oxycodone-acetaminophen [Percocet] 5-325 mg tablet 1 tab PO Q4H PRN (Reason: pain) 7 Days Qty: 10 0RF naproxen 500 mg tablet 500 mg PO BID PRN PRN (Reason: Pain) Qty: 30 0RF No Action Plus (calcium carb) 1 EACH tablet 1 tab PO DAILY Referrals / Follow Up: Zaid Amaro DO [Primary Care Provider] - Disposition Disposition (needs filled in before D/C Order can be placed): Home, Self Care
[2022-07-19] MEDS: Bupivacaine 0.25% 30 ML Vial (10:13)
--- NOTE | 2022-07-19 10:15 | FALS_PTH ---
PATIENT: AUBREY DIAMOND LOC: [facility] [place]#:[id number] AGE/SX: 36/F ROOM: RE07/19/[address]: Dr. Gisele Burch DO : 1985 BED: DIS: 07/19/2022 SPEC #: [id number] RECD: 07/19/22 11:11 STATUS: ANJEL SALINAS #: [id number] KASIE: 07/19/22 10:[address]: Gisele Burch DEPT: SURGICAL PATHOLOGY RECD BY: Latha Richardson ENTERED: 07/19/22 11:35 SP TYPE: FALL TUBES OTHR DR: Dr. Zaid Amaro DO Tissues: Fallopian tube Procedures: Surgery Specimen Level II HEADER OPERATION: Laparoscopic, salpingectomy PRE-OP DIAGNOSIS: Contraceptive management TISSUE SUBMITTED: Bilateral fallopian tubes MICROSCOPIC DIAGNOSIS Right and left fallopian tubes, bilateral salpingectomies: Complete cross-sections of fallopian tubes with no pathologic change. AM:link 07/22/2022 MICROSCOPIC DESCRIPTION Slides are reviewed. GROSS DESCRIPTION Received in fixative is one container labeled with the patient's name and designated bilateral fallopian tubes. The specimen consists of bilateral fallopian tubes including fimbrial ends each measuring 6 cm in length and 0.5 cm in diameter. The fallopian tubes are not identified as right or left. Sections reveal unremarkable cut surfaces. Performance Improvement Coordinator sections are submitted in two cassettes with each cassette containing one fallopian tube. / SUSAN:link 07/19/2022 TC:4 CPT: 48796 x2
[2022-07-19] MEDS: Silver Nitrate (BKC) 1 EACH (10:38)
--- NOTE | 2022-07-19 10:41 | OP.PCM_ITS ---
Problems Associated Problem List Diagnoses (1) Status post laparoscopy: Operative Report Date of Procedure: 07/19/22 Pre-operative diagnosis: desires permanent sterilization Post-operative diagnosis: desires permanent sterilization Procedure: laparoscopic bilateral salpingectomy Surgeon: Dr. 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 Bladder was drained of clear urine and SCDs were on preoperatively. A single toothed tenaculum was placed on the anterior lip the cervix and a sponge stick was inserted in the posterior aspect of the uterus to elevate the uterus. Attention was then paid to the abdominal portion of the procedure and the umbilicus was elevated with towel clamps and injected with Marcaine and after a 5 mm incision was made and a 5 mm laparoscope was inserted into the abdomen under direct visualization. The Abdomen was insufflated with CO2 gas and the patient was placed in Trendelenburg position. A left lower quadrant 5 mm port and a 5 mm port suprapubically were placed under direct visualization. A suprapubic mini grasper was inserted next. Uterus was well visualized and bilateral fallopian tubes identified and bilateral tubes were elevated and transecting across the mesosalpinx and the attachment to the uterine corpus bilaterally the tubes were removed without complication. Excellent hemostasis was noted. Fallopian tubes were removed through the lower port sites without complication. Liver and upper abdomen were visualized notably within normal limits and no other gross abnormalities were seen in the abdomen. All instruments removed from the abdomen after gas was desufflated. Port sites were closed with 3-0 Monocryl Steri's and op sites were applied. All instruments removed from the vagina and patient was awoken and taken recovery in stable condition. Procedures Urinary/Genital 52xxx-[id number]: 11797 Laproscopic BS/O
[2022-07-19 10:52] VITALS: BP 122/79; BP 126/83; PULSE 97; RESP 16; TEMP 36.1; O2SAT 100
[2022-07-19 11:00] VITALS: BP 122/79; BP 126/83; PULSE 92; RESP 16; O2SAT 99
[2022-07-19 11:15] VITALS: BP 117/83; BP 122/79; PULSE 64; RESP 16; O2SAT 100
[2022-07-19 11:30] VITALS: BP 114/73; BP 122/79; PULSE 73; RESP 16; TEMP 36.3; O2SAT 100
[2022-07-19 12:11] VITALS: BP 112/72; BP 122/79; PULSE 74; RESP 16; TEMP 36.6; O2SAT 98
== END 2022-07-19 12:26 | disposition home or self-care (01) ==
LOC: SDC 08:31 → AC 08:31
PROVIDERS: PCP Student in an Organized Health Care Education/Training Program; Referring Provider Obstetrics & Gynecology; Visit Provider Obstetrics & Gynecology
PROC: (CPT 58661; principal; 2022-07-19 10:00)
DX: Z30.2 Encounter for sterilization (principal)
CPT/HCPCS: 58661; 00840; 36415; 81025; 85025; 86850; 86900; 86901; 88302; J7120; J2405

== ENCOUNTER 2022-10-31 03:49 | Emergency (ER) | payer OTHER, BC, SELFPAY ==
[2022-10-31 03:50] VITALS: BP 143/85; PULSE 87; RESP 21; TEMP 36.3; O2SAT 100
[2022-10-31] MEDS: MethylPREDNISolone 125 MG/2 ML Vial IV (04:30)
[2022-10-31] MEDS: DiphenhydrAMINE 50 MG/ML Syringe IV (04:31)
--- NOTE | 2022-10-31 04:34 | EX.ED.DYSGE1 ---
HPI History of Present Illness Chief Complaint: Allergic Reaction Narrative Narrative: Patient is a 36-year-old female with no significant past medical history who presents with rash. She states that she was recently on Macrobid/nitrofurantoin for 5 days secondary to UTI. She states she took them as directed and after taking the last dose began to have itching and rash. She states the rash began more of her chest/back/trunk region and has not since spread up her neck towards her face and into her axilla and groin region. She reports the rash is pruritic in nature. She denies any fevers chills difficulty breathing or swallowing. She states no one else at home has the rash [facility] Medical History Anxiety History of concussion Migraine headache Non-smoker Recurrent UTI Wears glasses Home Medications vitamin with calcium no.72-iron 27 mg-folic acid 1 mg tablet ( Plus (calcium carbonate)) 1 tab PO DAILY preg 06/14/15 [History Last Taken 11/18/21] prednisone 20 mg tablet 40 mg PO DAILY 5 days #10 tabs 10/31/22 [Rx Last Taken Unknown] Allergy/AdvReac Type Severity Reaction Status Date / Time iodine Allergy Rash Verified 10/31/22 03:57 sulfamethoxazole Allergy Shortness Verified 10/31/22 03:57 [From Bactrim] of breath trimethoprim [From Bactrim] Allergy Shortness Verified 10/31/22 03:57 of breath Family History Mother Hypertension Father Hypertension CVA (cerebral vascular accident) Grandmother Breast cancer Cancer of fallopian tube Aunt Breast cancer Surgical History S/P S/P dilation and curettage S/P wisdom tooth extraction Social History Smoking Status: Never smoker alcohol intake: current alcohol intake frequency: holidays/special occasions only substance use type: does not use what type of physical activity do you participate in: other details: Patient is PT frequency: 5-6 times per week seatbelt use: always do you feel safe at home: Yes additional social history: - Rogers ROS ROS ED Constitutional Constitutional ED: Denies chills or fever(s) Eyes Eyes: Denies change in vision ENT ENT ED: Denies sore throat Cardiovascular Cardiovascular: Denies chest pain Respiratory/Chest Respiratory/Chest: Denies cough or dyspnea Gastrointestinal Gastrointestinal: Denies abdominal pain, diarrhea, nausea or vomiting Genitourinary Genitourinary ED: Denies dysuria Musculoskeletal Musculoskeletal: Denies myalgias Integumentary Reports rash Neurologic Neurologic: Denies headache(s) Hematologic/Lymphatic Hematologic/Lymphatic: Denies easy bleeding or easy bruising EXAM Physical Exam Const Vital Signs: 10/31/22 03:50 Temperature 97.4 F L Temperature Source Temporal Pulse Rate 87 Respiratory Rate 21 H Blood Pressure 143/85 H Blood Pressure Mean 104 Pulse Ox 100 Oxygen Delivery Method Room Air Positive well nourished and well developed General Appearance ED: well developed HEENT Reports moist mucous membranes HEENT Narrative: No tongue or lip swelling no oral lesions no airway edema or compromise Eyes PERRL and EOMs intact bilaterally Neck supple Resp normal respiratory effort and clear to auscultation bilaterally Cardio regular rate and regular rhythm Extremity normal to inspection Neuro oriented x3 and CN's II-XII intact bilaterally Sensorium / Orientation: alert Psych mental status grossly normal Skin Skin Narrative: Patient has a erythematous blanchable hive-like lesion that extends from her inguinal region into the abdomen chest and back and also progresses into the axilla and neck region. There is mild swelling to the patient's eyelids as well. However the rash does not extend to the palms or soles. There is no pustule heads or vesicular changes noted. There is no dermatomal pattern noted. MDM MDM MDM Narrative Medical decision making narrative: Patient presented to the ER afebrile and in no acute respiratory distress. She reported a rash that had begun after taking the antibiotic for 5 days. By exam there are no signs of infectious process such as cellulitis abscess or shingles. There is no coalescing lesions or desquamation to suggest Ramírez-Petros syndrome. She has no secondary joint swelling to suggest serum sickness. At this time the exam and history is most consistent with systemic reaction secondary to a drug. She is not having anaphylaxis or respiratory distress and therefore there is no need for epinephrine or admission. Patient was given IV Solu-Medrol Benadryl and Pepcid secondary to the allergic reaction. She was watched in the ER and she has had improvement of symptoms with no progression to respiratory distress. Secondary to this she can be discharged home with steroids for further inflammatory control. The plan of care was discussed with the patient and she is agreeable to the Discharge Plan Triage Chief Complaint: Allergic Reaction ED Provider: Rogers Swartz Dx/Rx/DC Orders Clinical Impression: Allergic reaction caused by a drug Instructions: ED ADVERSE DRUG REACTION Allergic Prescriptions: New prednisone 20 mg tablet 40 mg PO DAILY 5 Days Qty: 10 0RF No Action Plus (calcium carb) 1 EACH tablet 1 tab PO DAILY Primary Care Provider: Zaid Amaro Referrals: Zaid Amaro DO [Primary Care Provider] - Activity Restrictions/Additional Instructions: Please list Macrobid/nitrofurantoin as a allergy from now on as your rash/symptoms indicate this is the most likely cause. Continue the steroids once a day to reduce inflammation and itch. You may continue [id number] Benadryl and/or Pepcid for further histamine control if needed. It would take typically 3 to 5 days from your last dose of the medication before it is metabolized out of your system. If you have any further concerns please return for repeat evaluation Disposition Disposition: Home, Self Care
[2022-10-31 06:57] VITALS: BP 143/89
[2022-10-31 06:58] VITALS: BP 143/89
== END 2022-10-31 06:59 | disposition home or self-care (01) ==
LOC: ED 04:45
PROVIDERS: Emergency Provider Emergency Medicine; PCP Student in an Organized Health Care Education/Training Program; Visit Provider Emergency Medicine
DX: L27.0 Generalized skin eruption due to drugs and medicaments taken internally (principal); T37.8X5A Adverse effect of other specified systemic anti-infectives and antiparasitics, initial encounter
CPT/HCPCS: 96365; 96366; 96375; 99283; A4216; J3490

== ENCOUNTER → 2023-03-06 | Outpatient (CLI) | payer OTHER, BC, SELFPAY ==
--- NOTE | 2023-03-06 09:42 | NM_ITS ---
CLINICAL: 37-year-old female with history of abdominal pain. RADIONUCLIDE HEPATOBILIARY SCINTIGRAPHY COMPARISON: None available FINDINGS: Following the intravenous administration of 5.4 mCi of 99m Tc Mebrofenin, hepatobiliary images reveal: 1. Relatively prompt and mildly heterogeneous radiopharmaceutical concentration is noted by a normal sized liver. No parenchymal defects are identified. 2. Gallbladder activity is identified at 15 minutes post radiopharmaceutical administration. 3. Small intestinal tract is observed at 45 minutes following tracer injection. 4. Washout of the radiopharmaceutical by the hepatic parenchyma appears qualitatively normal. Cholecystokinin (0.02 ug/kg) was administered intravenously over a 30-minute period. The post CCK gallbladder ejection fraction calculated at 21 minutes following Cholecystokinin administration was noted to be 30.0 % (normal greater than 35%). There is scintigraphic evidence of post cholecystokinin duodenal-gastric reflux. NM/Hepatobilliary Img w/Pharm Int IMPRESSION: 1. ABNORMAL 99m Tc Mebrofenin hepatobiliary imaging examination with Cholecystokinin. A. A gallbladder ejection fraction calculated to be less than 35% following the administration of Cholecystokinin is consistent with the presence of functional hepatobiliary disease (gallbladder and/or sphincter of Oddi dyskinesia) and/or organic hepatobiliary disease (chronic acalculous cholecystitis and/or cystic duct syndrome) in patients with intermediate to high pretest probabilities of hepatobiliary illness. (Jonathan Dotson et al, Journal of Nuclear Medicine 32:1695, 1991). B. There is scintigraphic evidence of post CCK duodenal-gastric reflux. (Denis et al, Nucl Med Tricia Lala [employer] pg. 35, 1980). Electronically Signed: Franklin Irene, at 10:59 EDT ,
== END | disposition home or self-care (01) ==
LOC: NM 09:41
PROVIDERS: PCP Student in an Organized Health Care Education/Training Program; Referring Provider Surgery; Visit Provider Surgery
DX: R10.9 Unspecified abdominal pain (principal)
CPT/HCPCS: 78227; A9537; J2805

== ENCOUNTER → 2023-04-29 | Outpatient (CLI) | payer BC, SELFPAY ==
--- NOTE | 2023-04-29 13:23 | BI_ITS ---
MAMMOGRAPHY - BILATERAL SCREENING REASON FOR EXAM: Female, 37 years old. Routine annual screening examination. PERTINENT HISTORY: Grandmother with breast cancer. Aunt with breast cancer. TECHNIQUE: Digital bilateral breast claude (3D mammographic acquisition) in the CC and MLO projections. 2-D mediolateral oblique (MLO) and craniocaudad (CC) views of both breasts were obtained. CAD: Full Field Digital Mammography with Computer Added Detection was performed. COMPARISON: Comparison is made with prior study dated December 19, 2021. FINDINGS: Breast Composition: The breasts are extremely dense, which lowers the sensitivity of mammography. There are no dominant masses or suspicious calcifications. No other significant abnormalities are identified. There has been no significant change since the prior study. BI/SCRN MAMM (CAD)W/CLAUDE BILAT IMPRESSION: Stable bilateral screening mammogram. Yearly follow-up mammogram recommended. (A) ASSESSMENT CATEGORY: BIRADS Category 1: Negative. A letter regarding these results will be sent to the patient by the facility within 30 days. Approximately 10% of breast cancers are not detected by mammography. A normal mammogram should not delay biopsy of a clinically suspicious abnormality. [id number] Electronically Signed: Imtiaz Arora MD at 10:49 EDT ,
[2023-05-07 10:09] LABS: HPV APTIMA, High Risk Negative (Negative)
== END | disposition home or self-care (01) ==
PROVIDERS: PCP Student in an Organized Health Care Education/Training Program; Referring Provider Obstetrics & Gynecology; Visit Provider Obstetrics & Gynecology
DX: Z12.31 Encounter for screening mammogram for malignant neoplasm of breast (principal); Z80.3 Family history of malignant neoplasm of breast
CPT/HCPCS: 77063; 77067; 87624; 88175; G0145

== ENCOUNTER → 2024-08-06 | Outpatient (CLI) | payer BC, SELFPAY | END | disposition home or self-care (01) | LOC: LABSPEC 09:39 | PROVIDERS: PCP Student in an Organized Health Care Education/Training Program; Referring Provider Obstetrics & Gynecology; Visit Provider Obstetrics & Gynecology | DX: N89.8 Other specified noninflammatory disorders of vagina (principal) | CPT/HCPCS: 87070; 87205 ==

== ENCOUNTER → 2024-08-18 | Outpatient (CLI) | payer BC, SELFPAY ==
--- NOTE | 2024-08-18 08:46 | BI_ITS ---
MAMMOGRAPHY - BILATERAL SCREENING REASON FOR EXAM: Female, 38 years old. Routine annual screening examination. PERTINENT HISTORY: Grandmother with breast cancer. Aunt with breast cancer. TECHNIQUE: Digital bilateral breast claude (3D mammographic acquisition) in the CC and MLO projections. 2-D mediolateral oblique (MLO) and craniocaudad (CC) views of both breasts were obtained. CAD: Full Field Digital Mammography with Computer Added Detection was performed. COMPARISON: Comparison is made with prior study April 29, 2023 and December 27, 2021. FINDINGS: Breast Composition: The breasts are extremely dense, which lowers the sensitivity of mammography. There are no dominant masses or suspicious calcifications. No other significant abnormalities are identified. There has been no significant change since the prior study. BI/SCRN MAMM (CAD)W/CLAUDE BILAT IMPRESSION: Stable bilateral screening mammogram. Yearly follow-up mammogram recommended. (A) ASSESSMENT CATEGORY: BIRADS Category 1: Negative. A letter regarding these results will be sent to the patient by the facility within 30 days. Approximately 10% of breast cancers are not detected by mammography. A normal mammogram should not delay biopsy of a clinically suspicious abnormality. [id number] Electronically Signed: Imtiaz Arora MD at 9:36 EST ,
== END | disposition home or self-care (01) ==
PROVIDERS: PCP Student in an Organized Health Care Education/Training Program; Visit Provider Obstetrics & Gynecology
DX: Z12.31 Encounter for screening mammogram for malignant neoplasm of breast (principal)
CPT/HCPCS: 77063; 77067

== ENCOUNTER → 2025-08-29 | Outpatient (CLI) | payer BC, SELFPAY ==
--- NOTE | 2025-08-29 13:56 | US_ITS ---
PROCEDURE: PELVIC W/ TRANSVAGINAL 08/29/2025 REASON FOR EXAM: RIGHT LOWER PAIN TECHNIQUE: Procedure Code: [id number] Modality: US Procedure: PELVIC W/ TRANSVAGINAL Transabdominal and transvaginal COMPARISON: None. FINDINGS: Measurements: Uterus: Normal size, myometrial echotexture, and contour. Uterus measures 7.1 x 5.3 x 4.4. Uterus is retroverted Endometrium: Normally hyperechoic measuring 10 mm Right ovary: Normal size and echotexture. Measures 2.0 x 1.6 x 1.3 cm. There is a fluid-filled tubular structure in the right adnexal region suggesting hydrosalpinx. Left ovary: Normal size and echotexture. Measures 3.0 x 2.0 x 2.4 cm. There is a complex 2.2 cm cyst. No large pelvic mass identified. Both ovaries demonstrate normal color Doppler flow There is moderate free fluid in the cul de sac, bladder is incompletely distended US/Pelvic w/ Transvaginal IMPRESSION: Sonographically normal uterus Dilated fluid-filled tubular structure adjacent to the right ovary suggests hyd rosalpinx. Complex left ovarian cyst measuring 2.2 cm, no specific follow-up needed. Moderate free fluid in the cul de sac Short-term sonographic follow-up recommended to assess resolution Reading Location: [id number]
--- NOTE | 2025-08-29 16:15 | BI_ITS ---
EXAM: SCRN MAMM (CAD)W/CLAUDE BILAT DATE: 08/29/2025 CLINICAL HISTORY: F, Age 39 y/o , SCREENING TECHNIQUE: Procedure Code: [id number] Modality: MG Procedure: SCRN MAMM (CAD)W/CLAUDE BILAT COMPARISON: Prior exam(s) were compared FINDINGS: TISSUE DENSITY: The breasts are extremely dense, which lowers the sensitivity of mammography. Bilateral Breast Mammographic Findings: No significant masses, calcifications or other abnormalities are identified. BI/SCRN MAMM (CAD)W/CLAUDE BILAT IMPRESSION: No mammographic evidence of malignancy. Given family history of breast cancer and dense breast tissue, recommend supple mental annual screening with breast MRI that can be staggered at 6 month intervals from the annual screening mammogram. OVERALL FINAL ASSESSMENT BI-RADS 1: NEGATIVE. RECOMMENDATION: Routine annual follow-up in 1 Year Additional Recommendation none A letter with findings and recommendations will be mailed to the patient. Reading Location: [id number]
== END | disposition home or self-care (01) ==
LOC: US 13:36
PROVIDERS: PCP Student in an Organized Health Care Education/Training Program; Referring Provider Obstetrics & Gynecology; Visit Provider Obstetrics & Gynecology
DX: Z12.31 Encounter for screening mammogram for malignant neoplasm of breast (principal)
CPT/HCPCS: 76830; 76856; 77063; 77067